=== PATIENT | female | born 1935 | race Caucasian/White ===

== ENCOUNTER 2017-04-07 19:54 | Emergency (ER) | payer MEDICARE, OTHER ==
[2017-04-07] MEDS ORDERED: ACETAMINOPHEN 325 MG TABLET PO ONE (21:31)
--- NOTE | 2017-04-07 21:32 | ER Document Report ---
ED Medical Screen (RME) - General Chief Complaint: Flank Pain Stated Complaint: LEFT SIDE HURTING Time Seen by Provider: 04/07/17 21:30 Mode of Arrival: Wheelchair Information source: Patient Notes: Patient presents complaining of left lateral rib tenderness for the past 5 days. Patient denies any injury. Patient denies any chest pain, cough, nausea , vomiting or diarrhea. Patient denies any urinary symptoms. Patient saw her doctor who told her that this might be developing shingles but family states that it has been 4 days since then and they do not suspect shingles at this time. Pain is reproducible with palpation. hx: Hypertension, diabetes, cholesterol, UT TRAVEL OUTSIDE OF THE [place] IN LAST 30 DAYS: No - Related Data Allergies/Adverse Reactions: cetirizine HCl [From Zyrtec] Allergy (Severe, Verified 03/10/12 10:00) valdecoxib [From Bextra] Allergy (Intermediate, Verified 03/10/12 10:29) Past Medical History - Past Medical History Cardiac Medical History: Reports: Hx Atrial Fibrillation, Hx Hypercholesterolemia, Hx Hypertension Pulmonary Medical History: Denies: Hx Tuberculosis Neurological Medical History: Reports: Hx Cerebrovascular Accident Endocrine Medical History: Reports: Hx Diabetes Mellitus Type 2 Renal/ Medical History: Denies: Hx Peritoneal Dialysis Musculoskeltal Medical History: Reports Hx Arthritis Past Surgical History: Denies: Hx Appendectomy, Hx Bowel Surgery, Hx Section, Hx Cholecystectomy, Hx Coronary Artery Bypass Graft, Hx Gastric Bypass Surgery, Hx Herniorrhaphy, Hx Hysterectomy, Hx Mastectomy, Hx Pacemaker, Hx Tonsillectomy, Hx Tubal Ligation - Immunizations Hx Diphtheria, Pertussis, Tetanus Vaccination: No - unknown Physical Exam - Vital signs Vitals: Temp Pulse Resp BP Pulse Ox 98.4 F 16 L 16 155/65 H 98 04/07/17 20:09 04/07/17 20:09 04/07/17 20:09 04/07/17 20:09 04/07/17 20:09 - Respiratory Respiratory status: No respiratory distress Chest status: Tender - Left lateral rib tenderness with palpation Course - Vital Signs Vital signs: Temp Pulse Resp BP Pulse Ox 98.4 F 16 L 16 155/65 H 98 04/07/17 20:09 04/07/17 20:09 04/07/17 20:09 04/07/17 20:09 04/07/17 20:09
--- NOTE | 2017-04-07 22:31 | RADIOLOGY REPORT (SQ) ---
EXAM DESCRIPTION: CHEST PA/LAT COMPLETED DATE/TIME: 04/07/2017 10:18 pm REASON FOR STUDY: left lateral rib tenderness COMPARISON: 12/13/2012 EXAM PARAMETERS: NUMBER OF VIEWS: two views TECHNIQUE: Digital Frontal and Lateral radiographic views of the chest acquired. RADIATION DOSE: NA LIMITATIONS: none FINDINGS: LUNGS AND PLEURA: No acute opacities, masses or pneumothorax. No pleural effusion. MEDIASTINUM AND HILAR STRUCTURES: Stable. HEART AND VASCULAR STRUCTURES: Heart normal size. No evidence for failure. BONES: No acute findings. HARDWARE: None in the chest. OTHER: No other significant finding. IMPRESSION: No acute findings. TECHNICAL DOCUMENTATION: JOB ID: [id number] [employer]- All Rights Reserved
[2017-04-07 22:49] LABS: ABSOLUTE EOSINOPHILS # (AUTO) 0.2 10^3/uL (0.0-0.6); ABSOLUTE LYMPHOCYTES (AUTO) 2.2 10^3/uL (0.5-4.7); ABSOLUTE MONOCYTES (AUTO) 0.5 10^3/uL (0.1-1.4); BASOPHILS % (AUTO) 0.5 % (0-2); EOSINOPHILS % (AUTO) 2.1 % (0-6); HEMATOCRIT 43.6 % (36.0-47.0); HEMOGLOBIN 14.1 g/dL (12.0-15.5); HGB HCT DIFFERENCE -1.3; MEAN CORPUSCULAR HGB CONC 32.4 g/dL (32.0-36.0); MEAN CORPUSCULAR VOLUME 90 fl (80-97); RED BLOOD COUNT 4.87 10^6/uL (3.72-5.28); RED CELL DISTRIBUTION WIDTH 14.4 % (11.5-14.0); SEGMENTED NEUTROPHILS % (AUTO) 67.4 % (42-78)
[2017-04-07 22:51] LABS: APPEARANCE,URINE CLEAR; BILIRUBIN,URINE NEGATIVE (NEGATIVE); GLUCOSE, URINE >=500 mg/dL (NEGATIVE); KETONES,URINE NEGATIVE (NEGATIVE); LEUKOCYTE ESTERASE,URINE NEGATIVE (NEGATIVE); NITRITE,URINE NEGATIVE (NEGATIVE); PROTEIN,URINE 100 mg/dL (NEGATIVE); URINE SPECIFIC GRAVITY 1.007; UROBILINOGEN,URINE NEGATIVE mg/dL (<2.0)
[2017-04-07 23:10] LABS: ALANINE AMINOTRANSFERASE 35 U/L (9-52); ALBUMIN 4.4 g/dL (3.5-5.0); ALKALINE PHOSPHATASE 80 U/L (38-126); ANION GAP 14 (5-19); ASPARTATE AMINO TRANSFERASE 51 U/L (14-36); BILIRUBIN,DIRECT 0.3 mg/dL (0.0-0.4); BILIRUBIN,TOTAL 0.4 mg/dL (0.2-1.3); BLOOD UREA NITROGEN 23 mg/dL (7-20); CALCIUM 9.7 mg/dL (8.4-10.2); CARBON DIOXIDE 23 mmol/L (22-30); CHLORIDE 103 mmol/L (98-107); CREATINE KINASE 70 U/L (30-135); CREATININE RESULT 1.68 mg/dL (0.52-1.25); GLUCOSE 141 mg/dL (75-110); SODIUM 140.3 mmol/L (137-145); TOTAL PROTEIN 8.1 g/dL (6.3-8.2)
[2017-04-07 23:22] LABS: CREATINE KINASE MB 1.29 ng/mL (<4.55); TROPONIN I < 0.012 ng/mL
[2017-04-08] MEDS ORDERED: TRAMADOL HCL 50 MG TABLET PO ONE (01:17)
--- NOTE | 2017-04-08 01:22 | ER Document Report ---
ED General - General Chief Complaint: Flank Pain Stated Complaint: LEFT SIDE HURTING Time Seen by Provider: 04/07/17 21:30 Mode of Arrival: Wheelchair Notes: Patient is an 81-year-old female who presents with complaint of pain in the left rib. She does have a cardiac history. She hurts to palpation over her left rib. There is one single rib that is tender to her. Still hurts worse with movement. Pain is been there for approximately 1 week. She saw her doctor and was diagnosed with a UTI and placed on antibiotics. She has had no dysuria at this time. She says that the pain became worse tonight and therefore they came to the ER. No fevers. No vomiting. No diarrhea. She had small amount of difficulty breathing and because it hurts to breathe. She has no other complaints at this time. TRAVEL OUTSIDE OF THE [place] IN LAST 30 DAYS: No - Related Data Allergies/Adverse Reactions: cetirizine HCl [From Zyrtec] Allergy (Severe, Verified 03/10/12 10:00) valdecoxib [From Bextra] Allergy (Intermediate, Verified 03/10/12 10:29) Past Medical History - General Information source: Patient - Social History Smoking Status: Unknown if Ever Smoked Frequency of alcohol use: None Drug Abuse: None Family History: Reviewed & Not Pertinent Patient has suicidal ideation: No Patient has homicidal ideation: No - Past Medical History Cardiac Medical History: Reports: Hx Atrial Fibrillation, Hx Hypercholesterolemia, Hx Hypertension Pulmonary Medical History: Denies: Hx Tuberculosis Neurological Medical History: Reports: Hx Cerebrovascular Accident Endocrine Medical History: Reports: Hx Diabetes Mellitus Type 2 Renal/ Medical History: Denies: Hx Peritoneal Dialysis Musculoskeltal Medical History: Reports Hx Arthritis Past Surgical History: Denies: Hx Appendectomy, Hx Bowel Surgery, Hx Section, Hx Cholecystectomy, Hx Coronary Artery Bypass Graft, Hx Gastric Bypass Surgery, Hx Herniorrhaphy, Hx Hysterectomy, Hx Mastectomy, Hx Pacemaker, Hx Tonsillectomy, Hx Tubal Ligation - Immunizations Hx Diphtheria, Pertussis, Tetanus Vaccination: No - unknown Hx Pneumococcal Vaccination: 02/29/04 Physical Exam - Vital signs Vitals: Temp Pulse Resp BP Pulse Ox 98.4 F 16 L 16 155/65 H 98 04/07/17 20:09 04/07/17 20:09 04/07/17 20:09 04/07/17 20:09 04/07/17 20:09 Course - Vital Signs Vital signs: Temp Pulse Resp BP Pulse Ox 97.6 F 58 L 16 147/57 H 98 04/08/17 02:13 04/08/17 02:13 04/08/17 02:13 04/08/17 02:13 04/08/17 02:13 - Laboratory Result Diagrams: 04/07/17 22:10 04/07/17 22:10 Laboratory results interpreted by me: 04/07/17 04/07/17 04/07/17 22:10 22:10 22:10 RDW 14.4 H BUN 23 H Creatinine 1.68 H Est GFR ( Amer) 35 L Est GFR (Non-Af Amer) 29 L Glucose 141 H AST 51 H Urine Protein 100 H Urine Glucose (UA) >=500 H Urine Blood SMALL H - EKG Interpretation by Me Additional EKG results interpreted by me: 04/08/17 01:17 EKG is reviewed and interpreted by me. EKG shows normal sinus rhythm with a rate of [address] segment elevation or depression. No ischemic T-wave inversions. MN interval, QRS duration, QTc intervals are within normal range. Old EKG for comparison is from December 13, 2012. - Transfer of Care Notes: 04/08/17 03:06 Patient's pain is very easily to palpation along a single rib from the anterior aspect around the flank. She does not have tenderness to palpation along any other parts of the rib cage. Her abdomen is nontender. I suspect subluxed rib that is probably causing her pain. I do not suspect coronary disease. Her EKG is normal. Her pain and exam was not consistent with coronary disease and that her pain is easily reproducible with both palpation and movement. At this time I feel the patient safe to be discharged home. I will give her an incentive spirometer to make sure that she does take deep breaths so that she is not splinting and does not develop pneumonia. I will have her follow-up with her doctor later this week for close reevaluation. Patient and family agree with plan and she will be discharged home. Discharge - Discharge Clinical Impression: Rib pain on left side Condition: Good Disposition: HOME, SELF-CARE Additional Instructions: Please take Tylenol during the day. Take Ultram if the pain is not well controlled with the Tylenol. Please return to the ER if the pain changes in location, you have difficulty breathing, or if you have fevers. Please use the incentive spirometer to take a deep breath at least once every 30 minutes. Please follow up with your doctor in 2-3 days for close reevaluation. Prescriptions: Tramadol HCl [Ultram] 50 mg PO Q6 PRN #20 tablet PRN Reason: Referrals: ANISH DEVRIES MD [Primary Care Provider] - Follow up as needed
[2017-04-08 02:19] VITALS: BP 147/57
--- NOTE | 2017-04-08 12:45 | EKG REPORT ---
SEVERITY:- ABNORMAL ECG - SINUS RHYTHM PROBABLE INFERIOR INFARCT, AGE INDETERMINATE BORDERLINE R WAVE PROGRESSION, ANTERIOR LEADS : Confirmed by: Elham Jaimes MD 08-Apr-2017 12:44:25
== END 2017-04-08 02:20 | disposition home or self-care (01) ==
LOC: ER 19:54
DX: R07.81 Pleurodynia (principal); R10.9 Unspecified abdominal pain; I48.91 Unspecified atrial fibrillation; E78.00 Pure hypercholesterolemia, unspecified; I10 Essential (primary) hypertension; Z86.73 Personal history of transient ischemic attack (TIA), and cerebral infarction without residual deficits
CPT/HCPCS: 93005; 99284; 36415; 82553; 82550; 85025; 80053; 81001; 84484; 71020; 93010; A9270 ×2

== ENCOUNTER 2017-06-11 07:26 | Observation (INO) | payer MEDICARE, OTHER ==
[2017-06-05 09:39] LABS: HEMATOCRIT 37.1 % (36.0-47.0); HEMOGLOBIN 12.4 g/dL (12.0-15.5); HGB HCT DIFFERENCE 0.1; MEAN CORPUSCULAR HEMOGLOBIN 29.7 pg (27.0-33.4); MEAN CORPUSCULAR HGB CONC 33.4 g/dL (32.0-36.0); MEAN CORPUSCULAR VOLUME 89 fl (80-97); RED BLOOD COUNT 4.17 10^6/uL (3.72-5.28); RED CELL DISTRIBUTION WIDTH 15.1 % (11.5-14.0); WHITE BLOOD COUNT 7.3 10^3/uL (4.0-10.5)
[2017-06-05 12:28] LABS: ANION GAP 13 (5-19); BLOOD UREA NITROGEN 21 mg/dL (7-20); CARBON DIOXIDE 27 mmol/L (22-30); CHLORIDE 99 mmol/L (98-107); CREATININE RESULT 1.42 mg/dL (0.52-1.25); GLUCOSE 241 mg/dL (75-110); POTASSIUM 4.8 mmol/L (3.6-5.0); SODIUM 138.8 mmol/L (137-145)
--- NOTE | 2017-06-05 13:58 | EKG REPORT ---
SEVERITY:- ABNORMAL ECG - SINUS RHYTHM INFERIOR INFARCT, AGE INDETERMINATE CONSIDER ANTERIOR INFARCT : Confirmed by: Faraz Bullard MD 05-Jun-2017 13:57:22
--- NOTE | 2017-06-06 17:51 | RADIOLOGY REPORT (SQ) ---
EXAM DESCRIPTION: CHEST PA/LATERAL COMPLETED DATE/TIME: 06/05/2017 10:59 am REASON FOR STUDY: PRE-OP COMPARISON: Two-view chest 04/07/2017 CT chest 03/23/2012 EXAM PARAMETERS: NUMBER OF VIEWS: two views TECHNIQUE: Digital Frontal and Lateral radiographic views of the chest acquired. RADIATION DOSE: NA LIMITATIONS: none FINDINGS: LUNGS AND PLEURA: New pleural thickening/ calcification in the right lateral mid chest. No acute infiltrates. No pleural effusions. No pneumothorax. MEDIASTINUM AND HILAR STRUCTURES: No masses or contour abnormalities. HEART AND VASCULAR STRUCTURES: Heart normal size. No evidence for failure. BONES: No acute findings. HARDWARE: None in the chest. OTHER: No other significant finding. IMPRESSION: Right-sided mid chest pleural thickening/ calcification new compared to previous studies . No acute alveolar infiltrates. No pleural effusion or pneumothorax. TECHNICAL DOCUMENTATION: JOB ID: [id number] [employer]- All Rights Reserved
[~2017-06-11 07:26] MED LIST: ACETAMINOPHEN 325 MG TABLET PO PRN; CEFAZOLIN 1 GM/D5W RTU 1 GM/50 ML RTUPB IV PRN; LACTATED RINGERS 1000 ML IV PRN; LIDOCAINE 0.5% INJ-PF (5 MG/ML) 50 ML SDV SUBCUT PRN; LIDOCAINE 4% TRANSPARENT DRESSING 5 GM KIT TP PRN
[2017-06-11 08:33] LABS: PARTIAL THROMBOPLASTIN TIME 27.3 SEC (23.5-35.8); PROTHROMBIN TIME 13.6 SEC (11.4-15.4)
[2017-06-11] MEDS ORDERED: ONDANSETRON HCL INJ/PF 4 MG/2 ML SDV ONE ×2 (09:47→09:58)
[2017-06-11] MEDS ORDERED: LIDOCAINE 2% INJ-PF (20 MG/ML) 10 ML AMPUL ONE (09:58)
[2017-06-11] MEDS ORDERED: SUCCINYLCHOLINE CHLORIDE INJ 200 MG/10 ML VIAL ONE (09:58)
--- NOTE | 2017-06-11 10:25 | EKG REPORT ---
SEVERITY:- ABNORMAL ECG - SINUS RHYTHM PROBABLE INFERIOR INFARCT, AGE INDETERMINATE CONSIDER ANTERIOR INFARCT : Confirmed by: Alannah Ventura 11-Jun-2017 10:24:43
[2017-06-11] MEDS ORDERED: MORPHINE SULFATE 10 MG/ML INJ IV ONE (10:30)
[2017-06-11] MEDS ORDERED: LIDOCAINE 2%/EPINEPHRINE INJ 20 ML VIAL ONE (11:11)
[2017-06-11] MEDS ORDERED: MICROFIBRILLAR COLLAGEN 1 GM PACK ONE (11:11)
[2017-06-11] MEDS ORDERED: METHYLENE BLUE 50 MG/10 ML AMPULE ONE (11:11)
--- NOTE | 2017-06-11 11:16 | RADIOLOGY REPORT (SQ) ---
EXAM DESCRIPTION: NM LYMPHATICS/LYMPH GLANDS COMPLETED DATE/TIME: 06/11/2017 9:38 am REASON FOR STUDY: BREAST CANCER C50.911 MALIGNANT NEOPLASM OF UNSP SITE OF RIGHT FEMALE JACE Z01.81 8 ENCOUNTER FOR OTHER PREPROCEDURAL EXAMINATION Z79.01 FDC (CURRENT) USE OF ANTICOAGULANTS COMPARISON: Two-view chest 06/05/2017 RADIONUCLIDE AND DOSE: 543 microcuries TC-[id number] - [employer]. The route of agent administration: Subcutaneous in the skin. TECHNIQUE: The skin of the right breast was prepped in sterile fashion. The radiopharmaceutical was administered in equally divided doses in the periareolar breast. LIMITATIONS: None. FINDINGS: Images demonstrate activity at the injection site, with migration toward the axilla. IMPRESSION: ADMINISTRATION OF RADIOPHARMACEUTICAL FOR SENTINEL LYMPH NODE EVALUATION. TECHNICAL DOCUMENTATION: JOB ID: [id number] [employer]- All Rights Reserved
[2017-06-11 11:33] LABS: CREATINE KINASE MB 0.96 ng/mL (<4.55)
[2017-06-11 11:35] LABS: TROPONIN I < 0.012 ng/mL
[2017-06-11] MEDS ORDERED: MIDAZOLAM 2 MG/2 ML INJ ONE (13:15)
[2017-06-11] MEDS ORDERED: FENTANYL CITRATE INJ/PF 250 MCG/5 ML AMPULE ONE (13:15)
[2017-06-11] MEDS ORDERED: PROPOFOL INJ 200 MG/20 ML VIAL IV ONE (13:15)
[2017-06-11] MEDS ORDERED: IBUPROFEN INJ 800 MG/8 ML VIAL IV ONE (13:15)
[2017-06-11] MEDS ORDERED: ONDANSETRON HCL INJ/PF 4 MG/2 ML SDV IV PRN ×3 (14:44→15:36)
[2017-06-11] MEDS ORDERED: MORPHINE SULFATE 10 MG/ML INJ IV PRN (15:14)
[2017-06-11] MEDS ORDERED: RINGERS SOLUTION,LACTATED 1,000 ML IV PRN (15:14)
--- NOTE | 2017-06-11 15:28 | Operative Report ---
Operative Report DATE OF SURGERY: 06/11/17 PREOPERATIVE DIAGNOSIS: Right breast cancer POSTOPERATIVE DIAGNOSIS: same OPERATION: 1. Right mastectomy. 2. Dual mapping sentinel lymph node biopsy 2 right axilla. 3. Drain of chest wall right side SURGEON: YUAN ALTAMIRANO 1ST CORRECTIONS OFFICER: BRYN CHAVES ANESTHESIA: GA TISSUE REMOVED OR ALTERED: 1. Right breast including tail of Eng. 2. Henderson lymph node right axilla 2 COMPLICATIONS: None ESTIMATED BLOOD LOSS: 50 cc INTRAOPERATIVE FINDINGS: See below PROCEDURE: The patient was taken from the [facility] surgery area to the radiology suite where she underwent lymphoscintigraphy of the right breast and axilla. The findings revealed 2 areas of increased uptake in the axilla. The patient was subsequently taken to the operating room and general anesthesia was induced. The arm was abducted, and the second portion of the dual mapping technique was deployed. The right breast was exposed. The upper outer quadrant of the areole complex was prepped with Betadine, approximately 2 cc of methylene blue was injected into the intradermal tissue. The right breast was massaged. Right breast, chest wall and right axilla were all prepped and draped sterile fashion. Surgical plan surgical timeout were conducted. Findings are significant for a very large right breast tumor primarily retroareolar but is prominently in the 4 5 and 6 o'clock position of the right breast with skin dimpling. Therefore a generous elliptical marking was made on the skin for planned mastectomy. The ellipse was taken down with the 10 blade. Superior and inferior skin flaps were raised with the superior taken down to the subclavicular area, and medially the parasternal region, and inferiorly the flap taken down to the serratus anterior muscle. The right breast was then taken off of the pectoralis major and the lateral border of the pectoralis minor muscle as well as the outer lateral aspect of the serratus anterior muscle all with electrocautery. We then took the tail of Eng and brought the level of dissection down to the low axilla, with the breast coming off with the tail all intact. The specimen was not labeled. This gave us ample time to perform the sentinel node biopsy as we had optimal exposure. The first sentinel node was blue and hot however very small with an in vivo count of 1861 ex vivo count of 1565. It was submitted as as sentinel lymph node 1, blue and hot. It was level 1. A second sentinel lymph node was also identified in same area with an in vivo count of 2240 and ex vivo count of 1694. It was labeled as blue and hot and sent to pathology and a second container. We did have breast examined by pathologist who stated that the tumor was contained within the mastectomy specimen however the anterior margin was close. Given the fact that there was no more breast tissue anterior to this close margin site except the inferior skin flap in this 81-year-old female, I felt the safest thing to do was to close the mastectomy incision. A large Luis Angel drain was placed in inferior skin flap of the wound closed with 2 running 2-0 Vicryl suture. Dermabond glue was applied. Patient tolerated procedure well, extubated taken recovery in stable condition. OMARI Garcia assisted with skin retraction, wound closure.
[2017-06-11] MEDS ORDERED: DEXTROSE 5%-LACTATED RINGERS 1,000 ML IV PRN (15:36)
[2017-06-11] MEDS ORDERED: ACETAMINOPHEN 325 MG TABLET PO PRN (15:36)
[2017-06-11] MEDS ORDERED: MAG HYDROX/AL HYDROX/SIMETH SUSP 30 ML UDCUP PO PRN (18:48)
[2017-06-11] MEDS: DOCUSATE SODIUM 100 MG CAPSULE PO SCH (18:56)
[2017-06-11] MEDS ORDERED: ONDANSETRON 4 MG TAB.RAPDIS PO PRN (19:00)
[2017-06-11] MEDS ORDERED: HYDROCODONE/ACETAMINOPHEN 5-325 MG TABLET PO PRN (19:00)
[2017-06-11] MEDS ORDERED: NITROGLYCERIN 0.4 MG/TAB 25 TAB/BOTTLE SL PRN (19:15)
[2017-06-11] MEDS: SOTALOL HCL 80 MG TABLET PO SCH (21:37)
[2017-06-11] MEDS ORDERED: ATORVASTATIN CALCIUM 10 MG TABLET PO SCH (22:00)
[2017-06-11] MEDS ORDERED: INSULIN GLARGINE,HUM.REC.ANLOG 1,000 UNIT/10 ML UNIT SUBCUT SCH (22:00)
[2017-06-11] MEDS ORDERED: RIVAROXABAN 15 MG TABLET PO SCH (22:00)
[2017-06-11] MEDS ORDERED: INSULIN GLARGINE,HUM.REC.ANLOG 300 UNIT/3 ML INSULN.PEN SUBCUT SCH (22:00)
[2017-06-12] MEDS: OXYCODONE-ACETAMINOPHEN 5-325 MG TABLET PO PRN ×2 (04:16→09:20)
[2017-06-12] MEDS ORDERED: ONDANSETRON HCL INJ/PF 4 MG/2 ML SDV IV PRN (08:00)
--- NOTE | 2017-06-12 08:02 | DISCHARGE SUMMARY E ---
Discharge Summary NAME: JOSUÉ ALVARADO : 1935 AGE: 81Y ADMITTED: 06/11/2017 DISCHARGED: 06/12/2017 REASON FOR ADMISSION: Right breast carcinoma. SUMMARY OF HOSPITALIZATION: Patient is an 81-year-old white female with a history of locally advanced right breast carcinoma. She was brought to ambulatory surgery for right mastectomy in conjunction with sentinel node biopsy of right axilla. Patient tolerated the procedure well. There were no postoperative complications. She was admitted overnight for observation and discharged home the following day. She was tolerating a diet, ambulating, voiding, and utilizing her arm satisfactorily. FINAL DIAGNOSIS: Invasive right breast carcinoma, ER/VT positive, HER2 negative, status post right mastectomy with sentinel node biopsy by Dr. Altamirano. DISPOSITION: Patient will be discharged home in the care of family. Followup with Dr. Altamirano, [facility], in 1-2 weeks. Take Percocet p.r.n. pain. She will resume her preoperative medications. In addition, she has been instructed on emptying her wound drain. DICTATING PHYSICIAN: YUAN ALTAMIRANO M.D. [id number] PHY#: [id number] ID: [id number] JOB#: [id number] ACCT: [id number] cc:YUAN ALTAMIRANO M.D. >
[2017-06-12 08:08] VITALS: BP 124/52
[2017-06-12] MEDS: DOCUSATE SODIUM 100 MG CAPSULE PO SCH (09:19)
[2017-06-12] MEDS: SOTALOL HCL 80 MG TABLET PO SCH (09:20)
[2017-06-12] MEDS ORDERED: SITAGLIPTIN PHOSPHATE 50 MG TABLET PO SCH (10:00)
[2017-06-12] MEDS ORDERED: METFORMIN HCL 500 MG TABLET PO SCH (10:00)
[2017-06-12] MEDS ORDERED: BENAZEPRIL HCL 10 MG TABLET PO SCH (10:00)
[2017-06-12] MEDS ORDERED: LINAGLIPTIN PO SCH (10:00)
[2017-06-12] MEDS ORDERED: SITAGLIPTIN PHOSPHATE 25 MG TABLET PO SCH (10:00)
[2017-06-12] MEDS ORDERED: METFORMIN HCL PO SCH (10:00)
[2017-06-12] MEDS ORDERED: CHOLECALCIFEROL (D3) 400 UNIT TABLET PO SCH (10:00)
[2017-06-12] MEDS ORDERED: (PENDING PHARMACY ID) (Empagliflozin [Jardiance] 10 MG) PO SCH (10:00)
[2017-06-12] MEDS ORDERED: AMLODIPINE BESYLATE 5 MG TABLET PO SCH (10:00)
[2017-06-12] MEDS ORDERED: (PENDING PHARMACY ID) (Ergocalciferol (Vitamin D2) [Vitamin D] 400 UNIT) PO SCH (10:00)
== END 2017-06-12 09:50 | disposition home or self-care (01) ==
LOC: OROUT 07:26 → 4N 17:35
PROVIDERS: ADMIT Surgery; ATTEND Surgery
PROC: 07B50ZX Excision of Right Axillary Lymphatic, Open Approach, Diagnostic (ICD-10-PCS; 2017-06-11)
PROC: 0HTT0ZZ Resection of Right Breast, Open Approach (ICD-10-PCS; principal; 2017-06-11 14:00)
DX: C50.311 Malignant neoplasm of lower-inner quadrant of right female breast (principal); C77.3 Secondary and unspecified malignant neoplasm of axilla and upper limb lymph nodes; Z17.0 Estrogen receptor positive status [ER+]; Z79.01 Long term (current) use of anticoagulants; Z01.818 Encounter for other preprocedural examination; E11.9 Type 2 diabetes mellitus without complications; I10 Essential (primary) hypertension; I48.91 Unspecified atrial fibrillation; E78.00 Pure hypercholesterolemia, unspecified; H54.8 Legal blindness, as defined in USA; Z86.73 Personal history of transient ischemic attack (TIA), and cerebral infarction without residual deficits; Z79.899 Other long term (current) drug therapy; Z79.4 Long term (current) use of insulin; Z72.0 Tobacco use
CPT/HCPCS: 1610; 36415; 71020; 78195; 80048; 82550; 82553; 82962; 84484; 85027; 85610; 85730; 88305; 88309; 93005; 93010; 88329; A9520; G0378; J0330; J0690; J1741; J1815; J2250; J2270; J2405; J2704; J3010; J3490; Q9968; S0119

== ENCOUNTER → 2017-06-24 | Outpatient (CLI) | payer MEDICARE ==
--- NOTE | 2017-06-24 12:52 | RADIOLOGY REPORT (SQ) ---
EXAM DESCRIPTION: CHEST PA/LATERAL COMPLETED DATE/TIME: 06/24/2017 12:34 pm REASON FOR STUDY: CHEST PAIN COMPARISON: CT chest 03/23/2012 Chest films 12/13/2012, 04/07/2017, 06/05/2017 EXAM PARAMETERS: NUMBER OF VIEWS: two views TECHNIQUE: Digital Frontal and Lateral radiographic views of the chest acquired. RADIATION DOSE: NA LIMITATIONS: none FINDINGS: LUNGS AND PLEURA: Chronic elevation right hemidiaphragm. Lungs are well inflated. No focal infiltrates. Chronic mild increased interstitial markings are present in the mid and lower lungs, unchanged from p rior studies. No pleural effusions. No pneumothorax. MEDIASTINUM AND HILAR STRUCTURES: No masses or contour abnormalities. HEART AND VASCULAR STRUCTURES: Heart normal size. No evidence for failure. BONES: Osteopenic without thoracic compression deformity HARDWARE: Surgical clips right breast OTHER: No other significant finding. IMPRESSION: No acute findings. Chronic elevation right hemidiaphragm and increased interstitial mar kings along the periphery of both lungs TECHNICAL DOCUMENTATION: JOB ID: [id number] [employer]- All Rights Reserved
--- NOTE | 2017-06-24 12:56 | RADIOLOGY REPORT (SQ) ---
EXAM DESCRIPTION: T SPINE AP/LAT COMPLETED DATE/TIME: 06/24/2017 12:34 pm REASON FOR STUDY: PAIN IN THORACIC SPINE R07.9 CHEST PAIN, UNSPECIFIED M54.6 PAIN IN THORACIC SPIN E COMPARISON: Two-view chest same date, CT chest 03/23/2012 NUMBER OF VIEWS: Two views. TECHNIQUE: AP and lateral radiographic images acquired of the thoracic spine. LIMITATIONS: None. FINDINGS: MINERALIZATION: Osteopenic ALIGNMENT: Normal. No scoliosis. VERTEBRAE: Grossly intact. DISCS: Multilevel disc space loss of height. HARDWARE: None in the spine. MEDIASTINUM AND SOFT TISSUES: Normal heart size and aortic contour. No soft tissue abnormality. VISUALIZED LUNG HOBBS: Clear. OTHER: No other significant finding. IMPRESSION: Diffuse degenerative disc changes in the thoracic spine. Osteopenia. No gross acute compression deformity. If there is strong clinical suspicion for thoraci c vertebral body compression fracture, consider MRI thoracic spine without contrast for followup TECHNICAL DOCUMENTATION: JOB ID: [id number] [employer]- All Rights Reserved
== END ==
LOC: OD 12:09
PROVIDERS: ATTEND Surgery
DX: M54.6 Pain in thoracic spine (principal); R07.9 Chest pain, unspecified
CPT/HCPCS: 71020; 72070

== ENCOUNTER 2017-07-02 21:13 | Inpatient (IN) | payer MEDICARE ==
[2017-07-02] MEDS ORDERED: ONDANSETRON 4 MG TAB.RAPDIS PO ONE (23:07)
[2017-07-02] MEDS ORDERED: NORMAL SALINE 1000 ML 1,000 ML IV ONE (23:07)
--- NOTE | 2017-07-02 23:09 | ER Document Report ---
ED Medical Screen (RME) - General Chief Complaint: Nausea/Vomiting Stated Complaint: BLOOD IN STOOL Time Seen by Provider: 07/02/17 23:06 Mode of Arrival: Wheelchair Information source: Relative Notes: Patient is an 81-year-old female who presents to the ER today for nausea, vomiting 1 day with blood from her vagina on the toilet paper prior to arrival. Patient recently had a mastectomy for breast cancer. She is on blood thinners due to history of multiple strokes. She does still have all of her abdominal organs. TRAVEL OUTSIDE OF THE [place] IN LAST 30 DAYS: No - Related Data Allergies/Adverse Reactions: cetirizine HCl [From Zyrtec] Allergy (Severe, Verified 06/11/17 08:23) valdecoxib [From Bextra] Allergy (Intermediate, Verified 06/11/17 08:23) tramadol Allergy (Verified 06/11/17 08:23) Past Medical History - General Information source: Patient, Relative - Past Medical History Cardiac Medical History: Reports: Hx Atrial Fibrillation, Hx Hypercholesterolemia, Hx Hypertension Denies: Hx Coronary Artery Disease, Hx Heart Attack Pulmonary Medical History: Denies: Hx Asthma, Hx Bronchitis, Hx COPD, Hx Pneumonia, Hx Tuberculosis Neurological Medical History: 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 Denies: Hx Seizures Endocrine Medical History: Reports: Hx Diabetes Mellitus Type 2 Renal/ Medical History: Denies: Hx Peritoneal Dialysis Musculoskeltal Medical History: Reports Hx Arthritis Past Surgical History: Denies: Hx Appendectomy, Hx Bowel Surgery, Hx Section, Hx Cholecystectomy, Hx Coronary Artery Bypass Graft, Hx Gastric Bypass Surgery, Hx Herniorrhaphy, Hx Hysterectomy, Hx Mastectomy, Hx Pacemaker, Hx Tonsillectomy, Hx Tubal Ligation - Immunizations Hx Diphtheria, Pertussis, Tetanus Vaccination: Yes - UNSURE WHEN Review of Systems - Review of Systems Gastrointestinal: See HPI Female Genitourinary: See HPI Physical Exam - Vital signs Vitals: Temp Pulse Resp BP Pulse Ox 98.2 F 76 14 133/62 H 97 07/02/17 21:32 07/02/17 21:32 07/02/17 21:32 07/02/17 21:32 07/02/17 21:32 - Notes Notes: PHYSICAL EXAMINATION: GENERAL: Mildly pale appearing, anxious to urinate, in no acute distress. LUNGS: CTAB and equal. No wheezes rales or rhonchi. HEART: Regular rate and rhythm without murmurs Course - Vital Signs Vital signs: Temp Pulse Resp BP Pulse Ox 98.2 F 76 14 133/62 H 97 07/02/17 21:32 07/02/17 21:32 07/02/17 21:32 07/02/17 21:32 07/02/17 21:32
[2017-07-02 23:47] LABS: HEMATOCRIT 34.2 % (36.0-47.0); HEMOGLOBIN 11.5 g/dL (12.0-15.5); HGB HCT DIFFERENCE 0.3; MEAN CORPUSCULAR HEMOGLOBIN 29.7 pg (27.0-33.4); MEAN CORPUSCULAR HGB CONC 33.6 g/dL (32.0-36.0); MEAN CORPUSCULAR VOLUME 88 fl (80-97); RED BLOOD COUNT 3.87 10^6/uL (3.72-5.28); RED CELL DISTRIBUTION WIDTH 16.3 % (11.5-14.0); WHITE BLOOD COUNT 9.7 10^3/uL (4.0-10.5)
[2017-07-02 23:52] LABS: PROTHROMBIN TIME 22.6 SEC (11.4-15.4)
[2017-07-02 23:55] LABS: ALANINE AMINOTRANSFERASE 32 U/L (9-52); ALBUMIN 4.3 g/dL (3.5-5.0); ALKALINE PHOSPHATASE 144 U/L (38-126); ANION GAP 12 (5-19); ASPARTATE AMINO TRANSFERASE 114 U/L (14-36); BILIRUBIN,DIRECT 0.6 mg/dL (0.0-0.4); BILIRUBIN,TOTAL 0.8 mg/dL (0.2-1.3); BLOOD UREA NITROGEN 26 mg/dL (7-20); CALCIUM 10.2 mg/dL (8.4-10.2); CARBON DIOXIDE 25 mmol/L (22-30); CHLORIDE 98 mmol/L (98-107); CREATININE RESULT 1.26 mg/dL (0.52-1.25); GLUCOSE 203 mg/dL (75-110); LIPASE 133.2 U/L (23-300); POTASSIUM 5.5 mmol/L (3.6-5.0); SODIUM 135.1 mmol/L (137-145); TOTAL PROTEIN 7.7 g/dL (6.3-8.2)
[2017-07-03 00:15] LABS: BAND NEUTROPHILS % (MANUAL) 6 % (3-5); BASOPHILS % (MANUAL) 0 % (0-2); EOSINOPHILS % (MANUAL) 4 % (0-6); LYMPHOCYTES % (MANUAL) 38 % (13-45); NUCLEATED RED BLOOD CELLS 4 /100 WBC (0); TOTAL CELLS COUNTED 100
[2017-07-03 00:18] LABS: ANISOCYTOSIS 1+; OVALOCYTES SLIGHT; POIKILOCYTOSIS SLIGHT; POLYCHROMASIA SLIGHT; TOXIC VACUOLATION PRESENT
[2017-07-03 01:29] LABS: APPEARANCE,URINE SLIGHTLY-CLOUDY; BILIRUBIN,URINE NEGATIVE (NEGATIVE); GLUCOSE, URINE >=500 mg/dL (NEGATIVE); KETONES,URINE 20 mg/dL (NEGATIVE); LEUKOCYTE ESTERASE,URINE SMALL (NEGATIVE); NITRITE,URINE NEGATIVE (NEGATIVE); PROTEIN,URINE 30 mg/dL (NEGATIVE); URINE SPECIFIC GRAVITY 1.023; UROBILINOGEN,URINE NEGATIVE mg/dL (<2.0)
--- NOTE | 2017-07-03 02:44 | RADIOLOGY REPORT (SQ) ---
EXAM DESCRIPTION: ACUTE ABDOMEN SERIES COMPLETED DATE/TIME: 07/03/2017 1:52 am REASON FOR STUDY: vomiting, abdominal distension COMPARISON: None. NUMBER OF VIEWS: Three views. TECHNIQUE: Frontal chest, supine abdomen and upright/decubitus abdomen radiographic images acquired. LIMITATIONS: None. FINDINGS: CHEST: Lungs clear of infiltrates. Prominent interstitium. FREE AIR: None. No abnormal gas collections. BOWEL GAS PATTERN: Nonobstructive pattern. No dilated loops or air fluid levels. CALCIFICATIONS: No suspicious calcifications. HARDWARE: Surgical clips of the right lower hemithorax/chest. SOFT TISSUES: No gross mass or suggestion of organomegaly. BONES: No acute fracture. No worrisome bone lesions. OTHER: No other significant finding. IMPRESSION: NO RADIOGRAPHIC EVIDENCE FOR ACUTE ABDOMINAL DISEASE. TECHNICAL DOCUMENTATION: JOB ID: [id number] [employer]- All Rights Reserved
--- NOTE | 2017-07-03 02:58 | ER Document Report ---
ED General - General Chief Complaint: Nausea/Vomiting Stated Complaint: BLOOD IN STOOL Time Seen by Provider: 07/02/17 23:06 Mode of Arrival: Wheelchair Notes: Patient is an 81-year-old female presents with complaints of an episode of vomiting. Her daughter lives with her. She said that she actually 2 episodes of vomiting. She said the first 1 was a large amount of brown foul-smelling material. Said the second episode was just a small amount of emesis. She denies any gross red blood. Patient also feels as if her abdomen is slightly distended. She has not had fevers. No diarrhea. The daughter says the main reason mother concern is she also has some blood coming from the vaginal area. She said that she had a little bit of blood on her underwear. She is on Xarelto. She takes Xarelto due to her history of atrial fibrillation and strokes. She also has a history of breast cancer and had surgery recently by Dr. Rogers. She has had no further issues with her breasts since the surgery. She denies any recent fevers. She denies any discomfort in her abdomen at this time. She has no other complaints at this time. TRAVEL OUTSIDE OF THE [place] IN LAST 30 DAYS: No - Related Data Allergies/Adverse Reactions: cetirizine HCl [From Zyrtec] Allergy (Severe, Verified 06/11/17 08:23) valdecoxib [From Bextra] Allergy (Intermediate, Verified 06/11/17 08:23) tramadol Allergy (Verified 06/11/17 08:23) Past Medical History - General Information source: Patient, Relative - Social History Smoking Status: Unknown if Ever Smoked Frequency of alcohol use: None Drug Abuse: None Family History: Reviewed & Not Pertinent Patient has suicidal ideation: No Patient has homicidal ideation: No - Past Medical History Cardiac Medical History: Reports: Hx Atrial Fibrillation, Hx Hypercholesterolemia, Hx Hypertension Denies: Hx Coronary Artery Disease, Hx Heart Attack Pulmonary Medical History: Denies: Hx Asthma, Hx Bronchitis, Hx COPD, Hx Pneumonia, Hx Tuberculosis Neurological Medical History: 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 Denies: Hx Seizures Endocrine Medical History: Reports: Hx Diabetes Mellitus Type 2 Renal/ Medical History: Denies: Hx Peritoneal Dialysis Musculoskeltal Medical History: Reports Hx Arthritis Past Surgical History: Denies: Hx Appendectomy, Hx Bowel Surgery, Hx Section, Hx Cholecystectomy, Hx Coronary Artery Bypass Graft, Hx Gastric Bypass Surgery, Hx Herniorrhaphy, Hx Hysterectomy, Hx Mastectomy, Hx Pacemaker, Hx Tonsillectomy, Hx Tubal Ligation - Immunizations Hx Diphtheria, Pertussis, Tetanus Vaccination: Yes - UNSURE WHEN Hx Pneumococcal Vaccination: 10/20/14 Review of Systems - Review of Systems Notes: My Normal Review Basic REVIEW OF SYSTEMS: CONSTITUTIONAL : Denies fever, chills, or sweats. Denies recent illness. EENT: Denies eye, ear, throat, or mouth pain or symptoms. Denies nasal or sinus congestion. CARDIOVASCULAR: Denies chest pain. RESPIRATORY: Denies cough, cold, or chest congestion. Denies shortness of breath, difficulty breathing, or wheezing. GASTROINTESTINAL: Denies abdominal pain. Vomiting 2 denies constipation. Last BM: GENITOURINARY: Denies difficulty urinating, painful urination, burning, frequency, or blood in urine. FEMALE GENITOURINARY: Small amount of vaginal bleeding. MUSCULOSKELETAL: Denies neck or back pain or joint pain or swelling. SKIN: Denies rash or skin lesions. NEUROLOGICAL: Denies altered mental status or loss of consciousness. Denies headache. Denies weakness or paralysis or loss of use of either side. Denies problems with gait or speech. Denies sensory or motor loss.SYCHIATRIC: Denies anxiety or stress or depression. ALL OTHER SYSTEMS REVIEWED AND NEGATIVE. Physical Exam - Vital signs Vitals: Temp Pulse Resp BP Pulse Ox 98.2 F 76 14 133/62 H 97 07/02/17 21:32 07/02/17 21:32 07/02/17 21:32 07/02/17 21:32 07/02/17 21:32 - Notes Notes: General Appearance: Well nourished, alert, cooperative, no acute distress, no obvious discomfort. Well-appearing. Vitals: reviewed, See vital signs table. Head: no swelling or tenderness to the head Eyes: PERRL, EOMI, Conjuctiva clear Mouth: No decreasd moisture Throat: No tonsillar inflammation, No airway obstruction, No lymphadenopathy Lungs: No wheezing, No rales, No rhonci, No accessory muscle use, good air exchange bilaterally. Heart: Normal rate, Regular rythm, No murmur, no rub Abdomen: Abdomen does appear slightly distended. She does not have any significant pain to palpation of her abdomen. She has faint bowel sounds. Rectal: Brown stool in rectal vault. No gross blood. Vaginal: No blood in vaginal vault on pelvic and speculum exam. Extremities: strength 5/5 in all extremities, good pulses in all extremities, no swelling or tenderness in the extremities, no edema. Skin: warm, dry, appropriate color, no rash Neuro: speech clear, oriented x 3, normal affect, responds appropriately to questions. Course - Re-evaluation Re-evalutation: 07/03/17 06:11 My concern is that the patient is on Xarelto and has dark emesis. She is guaiac positive. This makes her concerned that she has a upper GI bleed. Initially was concerned for possible ability of obstruction as well. This is only because the patient did have what the daughter described as also foul- smelling emesis. He also felt that maybe her his abdomen was more distended and usual. I think obstruction is unlikely as patient has normal acute abdominal series, has really no pain to palpation of her abdomen, and she has normal soft stool in the rectum with air going away into the rectum on x-ray. Due to the patient being 81 years old and on Xarelto and possibly having a GI bleed I felt appropriate to admit her for at least observation. I spoke with the hospitalist who agrees to admit the patient. Dictation of this chart was performed using voice recognition software; therefore, there may be some unintended grammatical errors. - Vital Signs Vital signs: Temp Pulse Resp BP Pulse Ox 98.2 F 76 15 150/109 H 95 07/02/17 21:32 07/02/17 21:32 07/03/17 04:00 07/03/17 01:01 07/03/17 04:00 - Laboratory Result Diagrams: 07/02/17 23:30 07/02/17 23:30 Laboratory results interpreted by me: 07/02/17 07/02/17 07/02/17 23:30 23:30 23:30 Hgb 11.5 L Hct 34.2 L RDW 16.3 H Plt Count 91 L Band Neutrophils % 6 H Monocytes % (Manual) 1 L Metamyelocytes % 1 H PT 22.6 H Sodium 135.1 L Potassium 5.5 H BUN 26 H Creatinine 1.26 H Est GFR ( Amer) 49 L Est GFR (Non-Af Amer) 41 L Glucose 203 H Direct Bilirubin 0.6 H AST 114 H Alkaline Phosphatase 144 H Urine Protein Urine Glucose (UA) Urine Ketones Ur Leukocyte Esterase Urine Ascorbic Acid 07/03/17 01:05 Hgb Hct RDW Plt Count Band Neutrophils % Monocytes % (Manual) Metamyelocytes % PT Sodium Potassium BUN Creatinine Est GFR ( Amer) Est GFR (Non-Af Amer) Glucose Direct Bilirubin AST Alkaline Phosphatase Urine Protein 30 H Urine Glucose (UA) >=500 H Urine Ketones 20 H Ur Leukocyte Esterase SMALL H Urine Ascorbic Acid 20 H Discharge - Discharge Clinical Impression: Vomiting Qualifiers: Vomiting type: unspecified Vomiting Intractability: unspecified Nausea presence : with nausea Qualified Code(s): R11.2 - Nausea with vomiting, unspecified GI bleed Qualifiers: GI bleed type/associated pathology: melena Qualified Code(s): K92.1 - Melena Condition: Stable Disposition: ADMITTED OBSERVATION Admitting Provider: Hospitalist Unit Admitted: [facility]
[2017-07-03] MEDS ORDERED: PANTOPRAZOLE SODIUM 40 MG VIAL IV ONE (04:15)
[2017-07-03] MEDS ORDERED: LACTULOSE SYRUP 20 GM/30 ML UDCUP PO ONE ×2 (04:43→12:30)
[2017-07-03] MEDS ORDERED: NA PHOS,M-B/NA PHOS,DI-BA (ADULT) 133 ML ENEMA PR ONE ×2 (04:43→12:30)
[2017-07-03] MEDS ORDERED: GLUCAGON,HUMAN RECOMB 1 MG INJ IM PRN (04:46)
[2017-07-03] MEDS ORDERED: METOPROLOL TARTRATE PF/INJ 5 MG/5 ML SDV IV PRN (04:46)
[2017-07-03] MEDS ORDERED: MAG HYDROX/AL HYDROX/SIMETH SUSP 30 ML UDCUP PO PRN (04:46)
[2017-07-03] MEDS ORDERED: ONDANSETRON HCL INJ/PF 4 MG/2 ML SDV IV PRN (04:46)
[2017-07-03] MEDS ORDERED: IPRATROPIUM/ALBUTEROL 0.5-2.5 MG/3 ML AMPUL NEB PRN (04:46)
[2017-07-03] MEDS ORDERED: DEXTROSE 40% GEL 15 GM TUBE PO PRN ×2 (04:46)
[2017-07-03] MEDS ORDERED: DEXTROSE 50%-WATER 25 GM/50 ML DISP.SYRIN IV PRN ×2 (04:46)
[2017-07-03] MEDS ORDERED: PANTOPRAZOLE SODIUM 40 MG VIAL IV PRN (04:52)
[2017-07-03] MEDS ORDERED: NORMAL SALINE 1000 ML 1,000 ML IV SCH (05:00)
--- NOTE | 2017-07-03 06:01 | PDOC H&P ---
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 fib on Xarelto and breast cancer status post mastectomy 2 weeks ago. Patient is accompanied by her daughter who is her caregiver and able to provide history. Patient has been her usual state of health until approximately 5 days ago having exceptional constipation secondary to narcotic 8 hours ago had an episode of abdominal pain feculent emesis followed by coffee-ground emesis. She is brought to the emergency room for evaluation and found to have epigastric pain abdominal distentiot, left lower quadrant pain and heme positive stool. She started on a bolus of Protonix and referred to the hospitalist for admission. Past Medical History Cardiac Medical History: Reports: Atrial Fibrillation, Hyperlipidema, Hypertension Denies: Coronary Artery Disease, Myocardial Infarction Pulmonary Medical History: Denies: Asthma, Bronchitis, Chronic Obstructive Pulmonary Disease (COPD), Pneumonia, Tuberculosis Neurological Medical History: Denies: Seizures Endocrine Medical History: Reports: Diabetes Mellitus Type 2 Malignancy Medical History: Reports: Breast Cancer Musculoskeltal Medical History: Reports: Arthritis Hematology: Denies: Anemia Past Surgical History Past Surgical History: Reports: Mastectomy Denies: Appendectomy, Section, Cholecystectomy, Coronary Artery Bypass Graft, Gastric Bypass Surgery, Herniorrhaphy, Hysterectomy, Pacemaker, Tonsillectomy, Tubal Ligation Social History Information Source: [facility] Records Lives with: Family Smoking Status: Unknown if Ever Smoked Frequency of Alcohol Use: None Hx Recreational Drug Use: No Drugs: None Hx Prescription Drug Abuse: No - Advance Directive Resuscitation Status: Do Not Resuscitate Family History Family History: Hypertension Parental Family History Reviewed: Yes Children Family History Reviewed: Yes Sibling(s) Family History Reviewed.: Yes Medication/Allergy Home Medications: Amlodipine Besylate [Norvasc 5 mg Tablet] 5 mg PO DAILY 03/10/12 Benazepril HCl [Lotensin 10 Mg Tablet] 10 mg PO DAILY 03/10/12 Pravastatin Sodium 40 mg PO QHS 03/10/12 Nitroglycerin [Nitrostat 0.4 mg (1/150 Gr) Tabs 25/Bottle] 0.4 mg SL Q5MP PRN Ondansetron [Zofran Odt 4 mg Tablet] 4 mg PO Q4HP PRN 12/13/12 Rivaroxaban [Xarelto 15 mg Tablet] 15 mg PO QHS 12/13/12 Sotalol HCl [Betapace Af] 80 mg PO Q12 12/13/12 Empagliflozin [Jardiance] 10 mg PO DAILY 06/05/17 Hydrocodone Bit/Acetaminophen [Hydrocodon-Acetaminophen 5-325] 1 each PO BIDP PRN 06/05/17 Insulin Glargine,Hum.rec.anlog [Lantus] 25 unit SQ QHS 06/05/17 Linagliptin/Metformin HCl [Jentadueto 2.5 mg-500 mg Tab] 1 each PO BID 06/05/17 Cholecalciferol (Vitamin D3) [Vitamin D3] 400 unit PO DAILY 06/11/17 Allergies/Adverse Reactions: cetirizine HCl [From Zyrtec] Allergy (Severe, Verified 06/11/17 08:23) valdecoxib [From Bextra] Allergy (Intermediate, Verified 06/11/17 08:23) tramadol Allergy (Verified 06/11/17 08:23) Review of Systems ROS unobtainable: Due to mental status Gastrointestinal: PRESENT: bloating, constipation Physical Exam Vital Signs: Temp Pulse Resp BP Pulse Ox 98.2 F 76 15 150/109 H 95 07/02/17 21:32 07/02/17 21:32 07/03/17 04:00 07/03/17 01:01 07/03/17 04:00 General appearance: PRESENT: cooperative, mild distress, obese Head exam: PRESENT: atraumatic, normocephalic Eye exam: PRESENT: conjunctiva pink, EOMI, PERRLA. ABSENT: scleral icterus Ear exam: PRESENT: normal external ear exam Mouth exam: PRESENT: moist, tongue midline Neck exam: ABSENT: carotid bruit, JVD, lymphadenopathy, thyromegaly Respiratory exam: PRESENT: clear to auscultation tima. ABSENT: rales, rhonchi, wheezes Cardiovascular exam: PRESENT: irregular rhythm, +S1, +S2, systolic murmur Pulses: PRESENT: normal dorsalis pedis pul Vascular exam: PRESENT: normal capillary refill GI/Abdominal exam: PRESENT: diminished bowel sounds, distended, soft, tenderness. ABSENT: guarding, mass, organolmegaly, rebound Rectal exam: PRESENT: deferred Extremities exam: PRESENT: full ROM. ABSENT: calf tenderness, clubbing, pedal edema Neurological exam: PRESENT: alert, awake, oriented to person, oriented to place , oriented to time, oriented to situation, CN II-XII grossly intact. ABSENT: motor sensory deficit Psychiatric exam: PRESENT: appropriate affect, normal mood. ABSENT: homicidal ideation, suicidal ideation Skin exam: PRESENT: dry, intact, warm. ABSENT: cyanosis, rash Results Impressions: Acute Abdomen Series 07/03/17 00:33 IMPRESSION: NO RADIOGRAPHIC EVIDENCE FOR ACUTE ABDOMINAL DISEASE. Assessment & Plan - Diagnosis (1) GI bleed Qualifiers: GI bleed type/associated pathology: melena Qualified Code(s): K92.1 - Melena Is this a current diagnosis for this admission?: Yes Plan: History suggests upper GI bleed, normal BUN and hemoglobin, concern for chronic anticoagulation on Xarelto which is held. Admit to IMCU with IV Protonix bolus , IV fluid challenge and consultation with gastroenterology (2) A-fib Is this a current diagnosis for this admission?: Yes Plan: Sotalol dependent, Lopressor IV ordered while n.p.o. Xarelto held. (3) Fecal impaction Is this a current diagnosis for this admission?: Yes Plan: Secondary to narcotic use of post operative pain, lactulose and enema ordered (4) Anticoagulation adequate with anticoagulant therapy Is this a current diagnosis for this admission?: Yes Plan: Xarelto held secondary to GI bleed (5) Vomiting Qualifiers: Vomiting type: unspecified Vomiting Intractability: unspecified Nausea presence: with nausea Qualified Code(s): R11.2 - Nausea with vomiting, unspecified Is this a current diagnosis for this admission?: Yes Plan: Correction of the underlying cause with Fleet enema, lactulose and Protonix and symptomatic management (6) Hyperkalemia Is this a current diagnosis for this admission?: Yes Plan: Secondary to fecal impaction IV fluid challenge, lactulose and reevaluation chemistry - Time Time Spent: 50 to 70 Minutes - Inpatient Certification Medical Necessity: Need Close Monitoring Due to Risk of Patient Decompensation
[2017-07-03 09:13] LABS: HEMATOCRIT 32.2 % (36.0-47.0); HEMOGLOBIN 10.8 g/dL (12.0-15.5); HGB HCT DIFFERENCE 0.2; MEAN CORPUSCULAR HEMOGLOBIN 29.6 pg (27.0-33.4); MEAN CORPUSCULAR HGB CONC 33.5 g/dL (32.0-36.0); MEAN CORPUSCULAR VOLUME 88 fl (80-97); RED BLOOD COUNT 3.64 10^6/uL (3.72-5.28); RED CELL DISTRIBUTION WIDTH 16.2 % (11.5-14.0); WHITE BLOOD COUNT 9.6 10^3/uL (4.0-10.5)
[2017-07-03 09:45] LABS: BAND NEUTROPHILS % (MANUAL) 2 % (3-5); BASOPHILS % (MANUAL) 0 % (0-2); EOSINOPHILS % (MANUAL) 3 % (0-6); LYMPHOCYTES % (MANUAL) 38 % (13-45); NUCLEATED RED BLOOD CELLS 6 /100 WBC (0); TOTAL CELLS COUNTED 100
[2017-07-03 09:54] LABS: ANISOCYTOSIS 1+; POLYCHROMASIA SLIGHT; TOXIC GRANULATION SLIGHT
--- NOTE | 2017-07-03 10:17 | EKG REPORT ---
SEVERITY:- ABNORMAL ECG - SINUS RHYTHM PROBABLE INFERIOR INFARCT, AGE INDETERMINATE : Confirmed by: Alannah Ventura 03-Jul-2017 10:16:15
[2017-07-03] MEDS ORDERED: ONDANSETRON 4 MG TAB.RAPDIS PO PRN (12:31)
[2017-07-03] MEDS ORDERED: HYDROCODONE/ACETAMINOPHEN 5-325 MG TABLET PO PRN (12:31)
[2017-07-03] MEDS ORDERED: PIPERACILLIN SODIUM/TAZOBACTAM 3.375 GM in NORMAL SALINE 100 ML IV SCH (12:45)
[2017-07-03] MEDS ORDERED: PHYTONADIONE INJ 10 MG/1 ML AMPULE SUBCUT ONE (13:05)
[2017-07-03 14:09] LABS: HEMATOCRIT 31.8 % (36.0-47.0); HEMOGLOBIN 10.8 g/dL (12.0-15.5); HGB HCT DIFFERENCE 0.6; MEAN CORPUSCULAR HEMOGLOBIN 29.7 pg (27.0-33.4); MEAN CORPUSCULAR HGB CONC 33.8 g/dL (32.0-36.0); MEAN CORPUSCULAR VOLUME 88 fl (80-97); RED BLOOD COUNT 3.62 10^6/uL (3.72-5.28); RED CELL DISTRIBUTION WIDTH 16.1 % (11.5-14.0); WHITE BLOOD COUNT 8.7 10^3/uL (4.0-10.5)
[2017-07-03] MEDS: SOTALOL HCL 80 MG TABLET PO SCH ×2 (14:18→22:05)
[2017-07-03 14:19] LABS: ALANINE AMINOTRANSFERASE 26 U/L (9-52); ALBUMIN 3.9 g/dL (3.5-5.0); ALKALINE PHOSPHATASE 130 U/L (38-126); ANION GAP 14 (5-19); ASPARTATE AMINO TRANSFERASE 100 U/L (14-36); BILIRUBIN,DIRECT 0.5 mg/dL (0.0-0.4); BILIRUBIN,TOTAL 0.8 mg/dL (0.2-1.3); BLOOD UREA NITROGEN 27 mg/dL (7-20); CALCIUM 9.9 mg/dL (8.4-10.2); CARBON DIOXIDE 21 mmol/L (22-30); CHLORIDE 100 mmol/L (98-107); CREATININE RESULT 1.21 mg/dL (0.52-1.25); GLUCOSE 169 mg/dL (75-110); POTASSIUM 5.1 mmol/L (3.6-5.0); SODIUM 135.3 mmol/L (137-145)
[2017-07-03] MEDS ORDERED: SORBITOL 70% SOLUTION 30 ML UDC PR ONE (14:30)
[2017-07-03] MEDS ORDERED: MINERAL OIL 30 ML UDCUP PR ONE (14:30)
[2017-07-03] MEDS ORDERED: GLYCERIN 99.5% (ANHYDROUS) 177 ML PR ONE (14:30)
[2017-07-03] MEDS ORDERED: MAGNESIUM HYDROXIDE SUSP 30 ML UDCUP PR ONE (14:30)
[2017-07-03 15:26] LABS: BAND NEUTROPHILS % (MANUAL) 4 % (3-5); BASOPHILS % (MANUAL) 0 % (0-2); EOSINOPHILS % (MANUAL) 2 % (0-6); LYMPHOCYTES % (MANUAL) 31 % (13-45); NUCLEATED RED BLOOD CELLS 12 /100 WBC (0); TOTAL CELLS COUNTED 100
[2017-07-03 15:27] LABS: ANISOCYTOSIS SLIGHT; POIKILOCYTOSIS 1+
--- NOTE | 2017-07-03 16:26 | PDOC CONSULTATION ---
Consultation Consult Date: 07/03/17 Attending physician:: CHET SAENZ Consult reason:: Coffee ground emesis. LLQ pain History of Present Illness Admission Date/PCP: 07/03/17 04:47 ANISH DEVRIES MD History of Present Illness: I was asked to see this patient by Dr. Thornton overnight. patient was admitted and several GI issues Dr Mendoza has seen this patient this am When I spoke with the patient, she is stable the daughter's are with her they state that she had foul smelling emesis patient had been having some abdominal pain there is no further nausea and vomiting has had some anemia in the past patient had seen Dr Velazquez in the past, colonoscopy had been done Dr Mendoza feels that her LLQ pain could be due fecal impaction will try to get records from previous colonoscopy , but might not be forthcoming since Dr Velazquez's office is closed she will probably need an EGD, rule out possible peptic ulcer disease denies any dysphagia or odynophagia there is some mild early satiety could have had melena there is no ongoing weight loss Past Medical History Cardiac Medical History: Reports: Atrial Fibrillation, Hyperlipidema, Hypertension Denies: Coronary Artery Disease, Myocardial Infarction Pulmonary Medical History: Denies: Asthma, Bronchitis, Chronic Obstructive Pulmonary Disease (COPD), Pneumonia, Tuberculosis Neurological Medical History: Denies: Seizures Endocrine Medical History: Reports: Diabetes Mellitus Type 2 Malignancy Medical History: Reports: Breast Cancer Musculoskeltal Medical History: Reports: Arthritis Hematology: Denies: Anemia Past Surgical History Past Surgical History: Denies: Appendectomy, Section, Cholecystectomy, Coronary Artery Bypass Graft, Gastric Bypass Surgery, Herniorrhaphy, Hysterectomy, Mastectomy, Pacemaker, Tonsillectomy, Tubal Ligation Social History Lives with: Family Smoking Status: Never Smoker Frequency of Alcohol Use: None Hx Recreational Drug Use: No Drugs: None Hx Prescription Drug Abuse: No - Advance Directive Resuscitation Status: Full Code Family History Family History: Reviewed & Not Pertinent Parental Family History Reviewed: Yes Children Family History Reviewed: Unknown Sibling(s) Family History Reviewed.: Unknown Medication/Allergy Home Medications: Amlodipine Besylate [Norvasc 5 mg Tablet] 5 mg PO DAILY 07/03/17 Benazepril HCl [Lotensin 10 Mg Tablet] 10 mg PO DAILY 07/03/17 Cholecalciferol (Vitamin D3) [Vitamin D3 400 Unit Tablet] 400 unit PO DAILY Empagliflozin [Jardiance] 10 mg PO DAILY 07/03/17 Hydrocodone/Acetaminophen [Rodney 5-325 mg Tablet] 1 tab PO Q12HP PRN 07/03/17 Insulin Glargine,Hum.rec.anlog [Lantus Solostar] 25 unit SQ QHS 07/03/17 Linagliptin/Metformin HCl [Jentadueto 2.5 mg-500 mg Tab] 1 each PO Q12 07/03/17 Nitroglycerin [Nitrostat 0.4 mg (1/150 Gr) Tabs 25/Bottle] 1 tab SL Q5MP PRN Ondansetron [Zofran Odt 4 mg Tablet] 4 mg PO Q4HP PRN 07/03/17 Pravastatin Sodium [Pravachol] 40 mg PO QHS 07/03/17 Rivaroxaban [Xarelto 15 mg Tablet] 15 mg PO QHS 07/03/17 Sotalol HCl [Sotalol] 80 mg PO Q12 07/03/17 Allergies/Adverse Reactions: cetirizine HCl [From Zyrtec] Allergy (Severe, Verified 06/11/17 08:23) valdecoxib [From Bextra] Allergy (Intermediate, Verified 06/11/17 08:23) tramadol Allergy (Verified 06/11/17 08:23) Review of Systems Constitutional: ABSENT: fever(s), headache(s), night sweats, weakness Eyes: ABSENT: visual disturbances Ears: ABSENT: hearing changes Nose, Mouth, and Throat: ABSENT: mouth pain Cardiovascular: ABSENT: edema, orthropnea, palpitations Respiratory: ABSENT: dyspnea, hemoptysis Gastrointestinal: PRESENT: melena, nausea, vomiting. ABSENT: hematochezia Genitourinary: ABSENT: dysuria, hematuria Musculoskeletal: ABSENT: deformity, joint swelling Integumentary: ABSENT: lesions, pruritus Neurological: ABSENT: syncope, tingling, tremor(s), vertigo Endocrine: ABSENT: polydipsia, polyphagia, polyuria Hematologic/Lymphatic: ABSENT: easy bruising Physical Exam Vital Signs: Temp Pulse Resp BP Pulse Ox 98.5 F 85 16 124/49 L 98 07/03/17 12:01 07/03/17 12:03 07/03/17 12:03 07/03/17 12:01 07/03/17 12:03 Intake & Output 07/02/17 07/03/17 07/04/17 06:59 06:59 06:59 Weight 72.1 kg General appearance: PRESENT: no acute distress, well-developed, well-nourished Head exam: PRESENT: atraumatic, normocephalic Eye exam: PRESENT: EOMI, PERRLA. ABSENT: nystagmus, periorbital swelling, scleral icterus Mouth exam: PRESENT: moist, neck supple Throat exam: ABSENT: tonsillar exudate, tonsillogmegaly Neck exam: ABSENT: meningismus, tenderness, thyromegaly Respiratory exam: PRESENT: symmetrical. ABSENT: tachypnea, unlabored, wheezes Cardiovascular exam: PRESENT: RRR, +S1, +S2 GI/Abdominal exam: PRESENT: soft. ABSENT: rebound, rigid, tenderness Extremities exam: ABSENT: joint swelling Musculoskeletal exam: PRESENT: full ROM Neurological exam: PRESENT: oriented to time, oriented to situation, CN II-XII grossly intact Skin exam: PRESENT: normal color. ABSENT: mottled, pallor, petechiae, urticaria , vesicles Results Laboratory Results: 07/03/17 13:09 07/03/17 13:09 07/03/17 07/03/17 07/03/17 06:15 08:52 13:09 WBC Cancelled 9.6 8.7 RBC Cancelled 3.64 L 3.62 L Hgb Cancelled 10.8 L 10.8 L Hct Cancelled 32.2 L 31.8 L MCV Cancelled 88 88 MCH Cancelled 29.6 29.7 MCHC Cancelled 33.5 33.8 RDW Cancelled 16.2 H 16.1 H Plt Count Cancelled 71 L 73 L Seg Neutrophils % Cancelled Not Reportable Not Reportable Lymphocytes % Cancelled Not Reportable Not Reportable Monocytes % Cancelled Not Reportable Not Reportable Eosinophils % Cancelled Not Reportable Not Reportable Basophils % Cancelled Not Reportable Not Reportable Absolute Neutrophils Cancelled Not Reportable Not Reportable Absolute Lymphocytes Cancelled Not Reportable Not Reportable Absolute Monocytes Cancelled Not Reportable Not Reportable Absolute Eosinophils Cancelled Not Reportable Not Reportable Absolute Basophils Cancelled Not Reportable Not Reportable Sodium Potassium Chloride Carbon Dioxide Anion Gap BUN Creatinine Est GFR ( Amer) Est GFR (Non-Af Amer) Glucose Calcium Magnesium Total Bilirubin AST ALT Alkaline Phosphatase Total Protein Albumin 07/03/17 07/03/17 13:09 13:09 WBC RBC Hgb Hct MCV MCH MCHC RDW Plt Count Seg Neutrophils % Lymphocytes % Monocytes % Eosinophils % Basophils % Absolute Neutrophils Absolute Lymphocytes Absolute Monocytes Absolute Eosinophils Absolute Basophils Sodium 135.3 L Potassium 5.1 H Chloride 100 Carbon Dioxide 21 L Anion Gap 14 BUN 27 H Creatinine 1.21 Est GFR ( Amer) 52 L Est GFR (Non-Af Amer) 43 L Glucose 169 H Calcium 9.9 Magnesium 1.9 Total Bilirubin 0.8 AST 100 H ALT 26 Alkaline Phosphatase 130 H Total Protein 7.0 Albumin 3.9 Impressions: Acute Abdomen Series 07/03/17 00:33 IMPRESSION: NO RADIOGRAPHIC EVIDENCE FOR ACUTE ABDOMINAL DISEASE. Assessment & Plan - Diagnosis (1) Fecal impaction Is this a current diagnosis for this admission?: Yes Plan: patient likely needs to be started on a regimen consisting of Miralax and stool softeners will try to get previous colonoscopy reports to see if she needs to have another one she could very likely have internal hemorrhoids will continue to follow (2) GI bleed Qualifiers: GI bleed type/associated pathology: melena Qualified Code(s): K92.1 - Melena Is this a current diagnosis for this admission?: Yes Plan: she was on anticoagulation and this has been stopped, patient could have peptic ulcer disease start her on a PPI patient will need EGD done Risks, benefits and alternatives are explained to the patient in detail further recommendations to follow she is willing to proceed - Time Time Spent: 50 to 70 Minutes
[2017-07-03] MEDS: NORMAL SALINE 1000 ML 1,000 ML IV PRN (19:04)
[2017-07-03] MEDS: NORMAL SALINE 100 ML with PANTOPRAZOLE SODIUM 80 MG IV PRN ×2 (19:04)
[2017-07-03] MEDS: PIPERACILLIN SODIUM/TAZOBACTAM 3.375 GM in DEXTROSE 5%-WATER 100 ML IV SCH ×2 (19:05→22:05)
[2017-07-03 20:37] LABS: HEMATOCRIT 28.2 % (36.0-47.0); HEMOGLOBIN 9.4 g/dL (12.0-15.5); MEAN CORPUSCULAR HEMOGLOBIN 29.6 pg (27.0-33.4); MEAN CORPUSCULAR HGB CONC 33.5 g/dL (32.0-36.0); MEAN CORPUSCULAR VOLUME 89 fl (80-97); RED BLOOD COUNT 3.19 10^6/uL (3.72-5.28); RED CELL DISTRIBUTION WIDTH 16.2 % (11.5-14.0); WHITE BLOOD COUNT 7.9 10^3/uL (4.0-10.5)
[2017-07-03 20:48] LABS: BAND NEUTROPHILS % (MANUAL) 5 % (3-5); BASOPHILS % (MANUAL) 0 % (0-2); EOSINOPHILS % (MANUAL) 0 % (0-6); LYMPHOCYTES % (MANUAL) 32 % (13-45); NUCLEATED RED BLOOD CELLS 7 /100 WBC (0); TOTAL CELLS COUNTED 100
[2017-07-03 20:56] LABS: ANISOCYTOSIS 1+; POLYCHROMASIA 1+; SMUDGE CELLS PRESENT; TOXIC GRANULATION 1+; TOXIC VACUOLATION PRESENT
[2017-07-03] MEDS: INSULIN GLARGINE,HUM.REC.ANLOG 300 UNIT/3 ML INSULN.PEN SUBCUT SCH (23:29)
[2017-07-03] MEDS: INSULIN LISPRO 100 UNIT/ML 3 ML VIAL SUBCUT PRN (23:33)
[2017-07-04] MEDS: NORMAL SALINE 100 ML with PANTOPRAZOLE SODIUM 80 MG IV PRN ×4 (03:05→16:01)
[2017-07-04] MEDS: PIPERACILLIN SODIUM/TAZOBACTAM 3.375 GM in DEXTROSE 5%-WATER 100 ML IV SCH ×3 (03:06→21:56)
[2017-07-04 05:05] LABS: ANION GAP 12 (5-19); BLOOD UREA NITROGEN 24 mg/dL (7-20); CARBON DIOXIDE 24 mmol/L (22-30); CHLORIDE 102 mmol/L (98-107); CREATININE RESULT 1.18 mg/dL (0.52-1.25); GLUCOSE 139 mg/dL (75-110); MAGNESIUM 1.9 mg/dL (1.6-2.3); SODIUM 137.6 mmol/L (137-145)
[2017-07-04 05:23] LABS: POTASSIUM 4.1 mmol/L (3.6-5.0)
[2017-07-04] MEDS: NORMAL SALINE 1000 ML 1,000 ML IV PRN (05:47)
[2017-07-04] MEDS ORDERED: PROPOFOL INJ 200 MG/20 ML VIAL IV ONE (07:23)
[2017-07-04] MEDS ORDERED: NORMAL SALINE 1000 ML 1,000 ML IV ONE (08:46)
[2017-07-04] MEDS ORDERED: MAGNESIUM CITRATE 296 ML BOTTLE PO ONE ×2 (09:00→16:00)
[2017-07-04] MEDS ORDERED: PHENAZOPYRIDINE HCL 100 MG TABLET PO ONE (09:30)
--- NOTE | 2017-07-04 11:54 | Operative Report ---
Operative Report DATE OF SURGERY: 07/04/17 Operative Report: The risks benefits and alternatives of the procedure explained to the patient in detail and informed consent is obtained.A GIF Olympus video scope was inserted into the patient's mouth and hypopharynx ,the esophagus is identified intubated and insufflated, the scope was then advanced through the esophagus stomach and duodenum, retroflexion maneuver is done, the esophagus stomach and first and second portions of the duodenum examined PREOPERATIVE DIAGNOSIS: Coffee-ground emesis POSTOPERATIVE DIAGNOSIS: Esophagitis. Esophageal erosions. Gastritis. Hiatal hernia. Biopsies obtained to rule out for Helicobacter pylori OPERATION: EGD with biopsy SURGEON: CHET SAENZ ANESTHESIA: LMAC TISSUE REMOVED OR ALTERED: Gastric mucosal specimen obtained to rule out Helicobacter pylori COMPLICATIONS: None. ESTIMATED BLOOD LOSS: None. INTRAOPERATIVE FINDINGS: As described above. PROCEDURE: Patient tolerated procedure well. No immediate postprocedure complications are noted. Patient sent back to her room in good condition. Can resume diet advance as tolerated We will wait on biopsies Treat for Helicobacter pylori if necessary Follow-up as outpatient
[2017-07-04] MEDS ORDERED: LIDOCAINE 2% VISCOUS SOLN 20 ML UDCUP PO ONE (12:16)
[2017-07-04] MEDS ORDERED: METOCLOPRAMIDE HCL ORAL SOLN 10 MG/10 ML UDCUP PO ONE (12:16)
[2017-07-04] MEDS ORDERED: MAG HYDROX/AL HYDROX/SIMETH SUSP 30 ML UDCUP PO ONE (12:16)
[2017-07-04] MEDS: SOTALOL HCL 80 MG TABLET PO SCH ×2 (12:52→21:56)
[2017-07-04] MEDS: PHENAZOPYRIDINE HCL 100 MG TABLET PO SCH ×2 (12:56→21:56)
[2017-07-04] MEDS ORDERED: FLUCONAZOLE 400 MG/NS RTU 400 MG/200 ML RTUPB IV ONE (13:15)
--- NOTE | 2017-07-04 17:02 | PDOC PROGRESS REPORT ---
Subjective Progress Note for:: 07/04/17 Subjective:: Patient seen earlier today on morning rounds. Patient is noted to have her mastectomy scar draining today. Patient is to undergo upper endoscopy today. Patient has had minimal bowel movement since last night. Review of systems is limited by patient dementia Physical Exam Vital Signs: Temp Pulse Resp BP Pulse Ox 97.6 F 75 21 H 118/49 L 99 07/04/17 13:46 07/04/17 13:46 07/04/17 13:46 07/04/17 13:46 07/04/17 13:46 Intake & Output 07/03/17 07/04/17 07/05/17 06:59 06:59 06:59 Intake Total 1954 300 Output Total 0 Balance 1954 300 Weight 72.1 kg Exam: General: Awake alert and oriented x1, no acute respiratory distress HEENT: AT/NC, PERRL, EOMI, oropharynx is moist, pink, no scleral icterus, no conjunctival injection Neck: No JVD, trachea midline Chest: Clear to auscultation bilaterally, no wheezes rhonchi or rales CV: RRR, normal S1 and S2, no rub, or gallop; 2/6 sm llsb Abdomen: Soft, nontender to palpation, nondistended, active bowel sounds; no rebound, rigidity, or guarding Extremities: No cyanosis, clubbing or edema Neuro: Cranial nerves II through XII are grossly intact without focal deficits; awake alert and oriented x1 Psych: Normal mood and affect Skin: left mastectomy scar well healing with area of erythema and whitish drainage at the NIMA site without lymphangitic streaking, inframammary areas with erythematous macular rash Results Laboratory Results: 07/03/17 20:23 07/04/17 04:13 07/03/17 07/03/17 07/04/17 18:55 20:23 04:13 WBC Cancelled 7.9 RBC Cancelled 3.19 L Hgb Cancelled 9.4 L Hct Cancelled 28.2 L MCV Cancelled 89 MCH Cancelled 29.6 MCHC Cancelled 33.5 RDW Cancelled 16.2 H Plt Count Cancelled 67 L Seg Neutrophils % Cancelled Not Reportable Lymphocytes % Cancelled Not Reportable Monocytes % Cancelled Not Reportable Eosinophils % Cancelled Not Reportable Basophils % Cancelled Not Reportable Absolute Neutrophils Cancelled Not Reportable Absolute Lymphocytes Cancelled Not Reportable Absolute Monocytes Cancelled Not Reportable Absolute Eosinophils Cancelled Not Reportable Absolute Basophils Cancelled Not Reportable Sodium 137.6 Potassium 4.1 D Chloride 102 Carbon Dioxide 24 Anion Gap 12 BUN 24 H Creatinine 1.18 Est GFR ( Amer) 53 L Est GFR (Non-Af Amer) 44 L Glucose 139 H Calcium 9.0 Magnesium 1.9 Impressions: Acute Abdomen Series 07/03/17 00:33 IMPRESSION: NO RADIOGRAPHIC EVIDENCE FOR ACUTE ABDOMINAL DISEASE. Assessment & Plan - Diagnosis (1) GI bleed Qualifiers: GI bleed type/associated pathology: melena Qualified Code(s): K92.1 - Melena Is this a current diagnosis for this admission?: Yes Plan: Patient underwent upper endoscopy today which revealed esophagitis, esophageal erosions, hiatal hernia, gastritis. Biopsies were obtained. Plan for lower endoscopy. Continue Protonix 40 mg IV twice daily. Will add Carafate to this. Continue to monitor H&H. Transfuse if drops below 8. (2) Sepsis, Gram negative Is this a current diagnosis for this admission?: Yes Plan: Secondary to gram-negative rods in the urine patient currently on Zosyn. (3) Urinary tract infection Qualifiers: Urinary tract infection type: acute cystitis Hematuria presence: without hematuria Qualified Code(s): N30.00 - Acute cystitis without hematuria Is this a current diagnosis for this admission?: Yes Plan: Growing gram-negative rods on Zosyn (4) Thrombocytopenia Is this a current diagnosis for this admission?: Yes Plan: Secondary to sepsis. Have also sent antiplatelet antibodies. Hold anticoagulation secondary to thrombocytopenia and acute bleeding (5) Esophagitis determined by endoscopy Is this a current diagnosis for this admission?: Yes (6) Esophageal erosions Is this a current diagnosis for this admission?: Yes (7) Hiatal hernia Is this a current diagnosis for this admission?: Yes (8) A-fib Qualifiers: Atrial fibrillation type: paroxysmal Qualified Code(s): I48.0 - Paroxysmal atrial fibrillation Is this a current diagnosis for this admission?: Yes Plan: Continue sotalol and as needed metoprolol (9) Anticoagulation adequate with anticoagulant therapy Is this a current diagnosis for this admission?: Yes Plan: Hold anticoagulation secondary to thrombocytopenia and acute bleeding (10) Fecal impaction Is this a current diagnosis for this admission?: Yes Plan: We will give patient a bottle of magnesium citrate. Plan for lower endoscopy. (11) Hyperkalemia Is this a current diagnosis for this admission?: Yes Plan: Improved secondary to hemolysis (12) Anemia associated with acute blood loss Is this a current diagnosis for this admission?: Yes Plan: Continue to monitor H&H. Transfuse if drops below 8. (13) Diabetes mellitus Qualifiers: Diabetes mellitus type: type 2 Diabetes mellitus complication status: with unspecified complications Diabetes mellitus terminal manager insulin use: with retirement use Qualified Code(s): E11.8 - Type 2 diabetes mellitus with unspecified complications; Z79.4 - alf (current) use of insulin Is this a current diagnosis for this admission?: Yes Plan: Continue Lantus and sliding scale insulin. - Time Time Spent with patient: 25-34 minutes Medications reviewed and adjusted accordingly: Yes
[2017-07-04] MEDS: NYSTATIN TOPICAL POWDER 15 GM TP SCH (18:04)
[2017-07-04] MEDS: SUCRALFATE SUSP 1 GM/10 ML UDCUP PO SCH (18:07)
[2017-07-04] MEDS ORDERED: ZINC OXIDE 20% OINTMENT 28.35 GM TP PRN (18:46)
[2017-07-04] MEDS: INSULIN GLARGINE,HUM.REC.ANLOG 300 UNIT/3 ML INSULN.PEN SUBCUT SCH (21:56)
[2017-07-04 22:00] LABS: HEMATOCRIT 29.9 % (36.0-47.0); HGB HCT DIFFERENCE 0.1; MEAN CORPUSCULAR HEMOGLOBIN 29.5 pg (27.0-33.4); MEAN CORPUSCULAR HGB CONC 33.6 g/dL (32.0-36.0); MEAN CORPUSCULAR VOLUME 88 fl (80-97); RED CELL DISTRIBUTION WIDTH 16.5 % (11.5-14.0)
[2017-07-04 22:08] LABS: BAND NEUTROPHILS % (MANUAL) 2 % (3-5); BASOPHILS % (MANUAL) 0 % (0-2); EOSINOPHILS % (MANUAL) 2 % (0-6); LYMPHOCYTES % (MANUAL) 31 % (13-45); NUCLEATED RED BLOOD CELLS 14 /100 WBC (0); TOTAL CELLS COUNTED 100
[2017-07-04 22:12] LABS: ANISOCYTOSIS 1+; PLATELET CLUMPS PRESENT; POLYCHROMASIA 2+
[2017-07-04 22:13] LABS: WHITE BLOOD COUNT 9.4 10^3/uL (4.0-10.5)
[2017-07-05] MEDS: INSULIN LISPRO 100 UNIT/ML 3 ML VIAL SUBCUT PRN ×2 (01:04→18:24)
[2017-07-05 01:23] LABS: HEMATOCRIT 29.8 % (36.0-47.0); HGB HCT DIFFERENCE 0.2; MEAN CORPUSCULAR HEMOGLOBIN 29.7 pg (27.0-33.4); MEAN CORPUSCULAR HGB CONC 33.6 g/dL (32.0-36.0); MEAN CORPUSCULAR VOLUME 89 fl (80-97); RED BLOOD COUNT 3.36 10^6/uL (3.72-5.28); RED CELL DISTRIBUTION WIDTH 16.3 % (11.5-14.0); WHITE BLOOD COUNT 8.5 10^3/uL (4.0-10.5)
[2017-07-05] MEDS: PIPERACILLIN SODIUM/TAZOBACTAM 3.375 GM in DEXTROSE 5%-WATER 100 ML IV SCH (03:37)
[2017-07-05] MEDS: NORMAL SALINE 100 ML with PANTOPRAZOLE SODIUM 80 MG IV PRN ×2 (05:29)
[2017-07-05] MEDS: PHENAZOPYRIDINE HCL 100 MG TABLET PO SCH ×3 (05:29→21:46)
[2017-07-05 07:01] LABS: ANION GAP 8 (5-19); BLOOD UREA NITROGEN 12 mg/dL (7-20); CALCIUM 8.4 mg/dL (8.4-10.2); CARBON DIOXIDE 21 mmol/L (22-30); CHLORIDE 111 mmol/L (98-107); CREATININE RESULT 1.04 mg/dL (0.52-1.25); GLUCOSE 81 mg/dL (75-110); POTASSIUM 3.5 mmol/L (3.6-5.0); SODIUM 140.3 mmol/L (137-145)
[2017-07-05] MEDS ORDERED: POTASSIUM CHLORIDE 10 MEQ TABLET.SA PO ONE (07:28)
[2017-07-05] MEDS ORDERED: LANSOPRAZOLE 30 MG TAB.RAP.DR PO ONE (07:42)
[2017-07-05] MEDS: HYDROCODONE/ACETAMINOPHEN 5-325 MG TABLET PO PRN ×2 (08:24→15:00)
[2017-07-05] MEDS: SUCRALFATE SUSP 1 GM/10 ML UDCUP PO SCH ×2 (09:47→18:24)
[2017-07-05] MEDS: NYSTATIN CREAM 15 GM TP SCH ×2 (09:47→18:24)
[2017-07-05] MEDS: SOTALOL HCL 80 MG TABLET PO SCH ×2 (09:47→21:45)
[2017-07-05] MEDS: CEFTRIAXONE 1 GM/D5W RTU 1 GM/50 ML RTUPB IV SCH (09:47)
[2017-07-05] MEDS: NYSTATIN TOPICAL POWDER 15 GM TP SCH ×2 (09:58→18:25)
[2017-07-05] MEDS ORDERED: FLUCONAZOLE 200 MG/NS RTU 100 ML IV SCH (10:00)
--- NOTE | 2017-07-05 14:34 | PDOC PROGRESS REPORT ---
Subjective Progress Note for:: 07/05/17 Subjective:: Patient seen earlier today on morning rounds. Patient is noted to have her mastectomy scar draining today. Patient reports that she feels improved. She is having several bowel movements after taking magnesium citrate yesterday. Plan for lower endoscopy on Friday. Patient denies chest pain, shortness of breath, abdominal pain, nausea, vomiting , fevers, chills, diarrhea, constipation, headache, new onset weakness. Physical Exam Vital Signs: Temp Pulse Resp BP Pulse Ox 98.4 F 72 18 131/51 H 96 07/05/17 03:15 07/05/17 03:15 07/05/17 03:15 07/05/17 03:15 07/05/17 03:15 Intake & Output 07/04/17 07/05/17 07/06/17 06:59 06:59 06:59 Intake Total 1954 47 Output Total 100 Balance 1954 46 Weight 72.1 kg 77.9 kg Exam: General: Awake alert and oriented x1, no acute respiratory distress HEENT: AT/NC, PERRL, EOMI, oropharynx is moist, pink, no scleral icterus, no conjunctival injection Neck: No JVD, trachea midline Chest: Clear to auscultation bilaterally, no wheezes rhonchi or rales CV: RRR, normal S1 and S2, no rub, or gallop; 2/6 sm llsb Abdomen: Soft, nontender to palpation, nondistended, active bowel sounds; no rebound, rigidity, or guarding Extremities: No cyanosis, clubbing or edema Neuro: Cranial nerves II through XII are grossly intact without focal deficits; awake alert and oriented x1 Psych: Normal mood and affect Skin: left mastectomy scar well healing with area of erythema and whitish drainage at the NIMA site without lymphangitic streaking, inframammary areas with erythematous macular rash Results Laboratory Results: 07/05/17 01:08 07/05/17 06:02 07/04/17 07/04/17 07/04/17 16:31 17:55 21:20 WBC Cancelled 9.4 Cancelled RBC Cancelled 3.40 L Cancelled Hgb Cancelled 10.0 L Cancelled Hct Cancelled 29.9 L Cancelled MCV Cancelled 88 Cancelled MCH Cancelled 29.5 Cancelled MCHC Cancelled 33.6 Cancelled RDW Cancelled 16.5 H Cancelled Plt Count Cancelled Cancelled Seg Neutrophils % Cancelled Not Reportable Cancelled Lymphocytes % Cancelled Not Reportable Cancelled Monocytes % Cancelled Not Reportable Cancelled Eosinophils % Cancelled Not Reportable Cancelled Basophils % Cancelled Not Reportable Cancelled Absolute Neutrophils Cancelled Not Reportable Cancelled Absolute Lymphocytes Cancelled Not Reportable Cancelled Absolute Monocytes Cancelled Not Reportable Cancelled Absolute Eosinophils Cancelled Not Reportable Cancelled Absolute Basophils Cancelled Not Reportable Cancelled Sodium Potassium Chloride Carbon Dioxide Anion Gap BUN Creatinine Est GFR ( Amer) Est GFR (Non-Af Amer) Glucose Calcium 07/05/17 07/05/17 01:08 06:02 WBC 8.5 RBC 3.36 L Hgb 10.0 L Hct 29.8 L MCV 89 MCH 29.7 MCHC 33.6 RDW 16.3 H Plt Count 51 L Seg Neutrophils % Lymphocytes % Monocytes % Eosinophils % Basophils % Absolute Neutrophils Absolute Lymphocytes Absolute Monocytes Absolute Eosinophils Absolute Basophils Sodium 140.3 Potassium 3.5 L Chloride 111 H Carbon Dioxide 21 L Anion Gap 8 BUN 12 Creatinine 1.04 Est GFR ( Amer) > 60 Est GFR (Non-Af Amer) 51 L Glucose 81 Calcium 8.4 Impressions: Acute Abdomen Series 07/03/17 00:33 IMPRESSION: NO RADIOGRAPHIC EVIDENCE FOR ACUTE ABDOMINAL DISEASE. Assessment & Plan - Diagnosis (1) GI bleed Qualifiers: GI bleed type/associated pathology: melena Qualified Code(s): K92.1 - Melena Is this a current diagnosis for this admission?: Yes Plan: Patient underwent upper endoscopy which revealed esophagitis, esophageal erosions, hiatal hernia, gastritis. Biopsies were pending. Plan for lower endoscopy. Hemoglobin stable. Prevacid twice daily and Carafate (2) Sepsis, Gram negative Is this a current diagnosis for this admission?: Yes Plan: Secondary Klebsiella in the urine patient transition to Rocephin (3) Urinary tract infection Qualifiers: Urinary tract infection type: acute cystitis Hematuria presence: without hematuria Qualified Code(s): N30.00 - Acute cystitis without hematuria Is this a current diagnosis for this admission?: Yes Plan: Klebsiella transition to Rocephin (4) Thrombocytopenia Is this a current diagnosis for this admission?: Yes Plan: Secondary to sepsis. Have also sent antiplatelet antibodies. Hold anticoagulation secondary to thrombocytopenia and acute bleeding Stop Zosyn as this may worsen from cytopenia. Place patient on Rocephin. (5) Esophagitis determined by endoscopy Is this a current diagnosis for this admission?: Yes (6) Esophageal erosions Is this a current diagnosis for this admission?: Yes (7) Hiatal hernia Is this a current diagnosis for this admission?: Yes (8) A-fib Qualifiers: Atrial fibrillation type: paroxysmal Qualified Code(s): I48.0 - Paroxysmal atrial fibrillation Is this a current diagnosis for this admission?: Yes Plan: Continue sotalol and as needed metoprolol (9) Anticoagulation adequate with anticoagulant therapy Is this a current diagnosis for this admission?: Yes Plan: Hold anticoagulation secondary to thrombocytopenia and acute bleeding (10) Fecal impaction Is this a current diagnosis for this admission?: Yes Plan: Improved (11) Hyperkalemia Is this a current diagnosis for this admission?: Yes (12) Anemia associated with acute blood loss Is this a current diagnosis for this admission?: Yes Plan: Continue to monitor H&H. Transfuse if drops below 8. (13) Diabetes mellitus Qualifiers: Diabetes mellitus type: type 2 Diabetes mellitus complication status: with unspecified complications Diabetes mellitus fci insulin use: with telephoto engineer use Qualified Code(s): E11.8 - Type 2 diabetes mellitus with unspecified complications; Z79.4 - mounter flutes and piccolos (current) use of insulin Is this a current diagnosis for this admission?: Yes Plan: Continue Lantus and sliding scale insulin. - Time Time Spent with patient: 35 or more minutes Medications reviewed and adjusted accordingly: Yes Anticipated discharge: Home with Homehealth Within: within 48 hours
[2017-07-05] MEDS: LANSOPRAZOLE 30 MG TAB.RAP.DR PO SCH (18:24)
[2017-07-06] MEDS: HYDROCODONE/ACETAMINOPHEN 5-325 MG TABLET PO PRN ×3 (00:36→20:18)
[2017-07-06] MEDS: INSULIN GLARGINE,HUM.REC.ANLOG 300 UNIT/3 ML INSULN.PEN SUBCUT SCH ×2 (00:36→22:15)
[2017-07-06] MEDS: INSULIN LISPRO 100 UNIT/ML 3 ML VIAL SUBCUT PRN ×3 (00:37→22:14)
[2017-07-06 04:53] LABS: HEMATOCRIT 25.5 % (36.0-47.0); HEMOGLOBIN 8.8 g/dL (12.0-15.5); HGB HCT DIFFERENCE 0.9; MEAN CORPUSCULAR HEMOGLOBIN 30.5 pg (27.0-33.4); MEAN CORPUSCULAR HGB CONC 34.6 g/dL (32.0-36.0); MEAN CORPUSCULAR VOLUME 88 fl (80-97); RED BLOOD COUNT 2.89 10^6/uL (3.72-5.28); RED CELL DISTRIBUTION WIDTH 16.4 % (11.5-14.0)
[2017-07-06 05:08] LABS: ANION GAP 9 (5-19); BLOOD UREA NITROGEN 12 mg/dL (7-20); CALCIUM 9.4 mg/dL (8.4-10.2); CARBON DIOXIDE 22 mmol/L (22-30); CHLORIDE 107 mmol/L (98-107); CREATININE RESULT 1.08 mg/dL (0.52-1.25); GLUCOSE 134 mg/dL (75-110); MAGNESIUM 1.8 mg/dL (1.6-2.3); PHOSPHORUS 3.7 mg/dL (2.5-4.5); POTASSIUM 4.3 mmol/L (3.6-5.0); SODIUM 137.9 mmol/L (137-145)
[2017-07-06 05:19] LABS: BAND NEUTROPHILS % (MANUAL) 1 % (3-5); BASOPHILS % (MANUAL) 1 % (0-2); EOSINOPHILS % (MANUAL) 1 % (0-6); LYMPHOCYTES % (MANUAL) 53 % (13-45); NUCLEATED RED BLOOD CELLS 11 /100 WBC (0); TOTAL CELLS COUNTED 100
[2017-07-06 05:25] LABS: ANISOCYTOSIS 1+; BURR CELLS 2+; POIKILOCYTOSIS SLIGHT; POLYCHROMASIA SLIGHT; SCHISTOCYTES SLIGHT; TARGET CELLS SLIGHT
[2017-07-06 05:29] LABS: WHITE BLOOD COUNT 8.7 10^3/uL (4.0-10.5)
[2017-07-06] MEDS: LANSOPRAZOLE 30 MG TAB.RAP.DR PO SCH ×2 (06:01→16:31)
[2017-07-06] MEDS: PHENAZOPYRIDINE HCL 100 MG TABLET PO SCH ×3 (06:01→22:14)
[2017-07-06 08:34] LABS: HEMATOCRIT 25.7 % (36.0-47.0); HGB HCT DIFFERENCE 1.3; MEAN CORPUSCULAR HEMOGLOBIN 30.7 pg (27.0-33.4); MEAN CORPUSCULAR HGB CONC 34.8 g/dL (32.0-36.0); MEAN CORPUSCULAR VOLUME 88 fl (80-97); RED BLOOD COUNT 2.91 10^6/uL (3.72-5.28); RED CELL DISTRIBUTION WIDTH 16.4 % (11.5-14.0); WHITE BLOOD COUNT 9.4 10^3/uL (4.0-10.5)
[2017-07-06 08:52] LABS: BAND NEUTROPHILS % (MANUAL) 2 % (3-5); BASOPHILS % (MANUAL) 0 % (0-2); EOSINOPHILS % (MANUAL) 2 % (0-6); LYMPHOCYTES % (MANUAL) 41 % (13-45); TOTAL CELLS COUNTED 100
[2017-07-06 08:54] LABS: NUCLEATED RED BLOOD CELLS 18 /100 WBC (0)
[2017-07-06 08:57] LABS: ANISOCYTOSIS 1+; POLYCHROMASIA SLIGHT
[2017-07-06] MEDS: SOTALOL HCL 80 MG TABLET PO SCH ×2 (09:08→22:14)
[2017-07-06] MEDS: SUCRALFATE SUSP 1 GM/10 ML UDCUP PO SCH ×2 (09:09→17:49)
[2017-07-06] MEDS: CEFTRIAXONE 1 GM/D5W RTU 1 GM/50 ML RTUPB IV SCH (09:10)
[2017-07-06] MEDS: NYSTATIN CREAM 15 GM TP SCH ×2 (09:17→17:50)
[2017-07-06] MEDS: NYSTATIN TOPICAL POWDER 15 GM TP SCH ×2 (09:25→17:52)
[2017-07-06] MEDS ORDERED: LIDOCAINE 2% VISCOUS SOLN 20 ML UDCUP PO PRN (10:21)
[2017-07-06] MEDS ORDERED: MAG HYDROX/AL HYDROX/SIMETH SUSP 30 ML UDCUP PO ONE (13:00)
[2017-07-06] MEDS ORDERED: LIDOCAINE 2% VISCOUS SOLN 20 ML UDCUP PO ONE (13:00)
[2017-07-06] MEDS ORDERED: PEG 3350/NA SULF,BICARB,CL/KCL 4000 ML PO ONE (13:00)
[2017-07-06] MEDS ORDERED: KETOROLAC TROMETHAMINE INJ/PF 30 MG/1 ML SDV IV ONE (13:00)
--- NOTE | 2017-07-06 14:58 | PDOC PROGRESS REPORT ---
Subjective Progress Note for:: 07/06/17 Subjective:: Patient seen earlier today on morning rounds. Daughter is present at bedside. Complaints of midepigastric and left upper quadrant pain. Patient denies chest pain, shortness of breath, nausea, vomiting, fevers, chills , diarrhea, constipation, headache, new onset weakness. Physical Exam Vital Signs: Temp Pulse Resp BP Pulse Ox 98.4 F 68 18 148/51 H 98 07/06/17 12:19 07/06/17 14:00 07/06/17 12:19 07/06/17 12:19 07/06/17 12:19 Intake & Output 07/05/17 07/06/17 07/07/17 06:59 06:59 06:59 Intake Total 4722 1178 742 Output Total 100 700 600 Balance 4622 478 142 Weight 77.9 kg 73.9 kg Exam: General: Awake alert and oriented x1, no acute respiratory distress HEENT: AT/NC, PERRL, EOMI, oropharynx is moist, pink, no scleral icterus, no conjunctival injection Neck: No JVD, trachea midline Chest: Clear to auscultation bilaterally, no wheezes rhonchi or rales CV: RRR, normal S1 and S2, no rub, or gallop; 2/6 sm llsb Abdomen: Soft, mildly tender to deep palpation LUQ, nondistended, active bowel sounds; no rebound, rigidity, or guarding Extremities: No cyanosis, clubbing or edema Neuro: Cranial nerves II through XII are grossly intact without focal deficits; awake alert and oriented x1 Psych: Normal mood and affect Skin: left mastectomy scar well healing with minor area of erythema and whitish drainage at the NIMA site without lymphangitic streaking, much improved Results Laboratory Results: 07/06/17 08:23 07/06/17 04:18 07/06/17 07/06/17 07/06/17 04:18 04:18 08:23 WBC 8.7 9.4 RBC 2.89 L 2.91 L Hgb 8.8 L 9.0 L Hct 25.5 L 25.7 L MCV 88 88 MCH 30.5 30.7 MCHC 34.6 34.8 RDW 16.4 H 16.4 H Plt Count 48 L 46 L Seg Neutrophils % Not Reportable Not Reportable Lymphocytes % Not Reportable Not Reportable Monocytes % Not Reportable Not Reportable Eosinophils % Not Reportable Not Reportable Basophils % Not Reportable Not Reportable Absolute Neutrophils Not Reportable Not Reportable Absolute Lymphocytes Not Reportable Not Reportable Absolute Monocytes Not Reportable Not Reportable Absolute Eosinophils Not Reportable Not Reportable Absolute Basophils Not Reportable Not Reportable Sodium 137.9 Potassium 4.3 Chloride 107 Carbon Dioxide 22 Anion Gap 9 BUN 12 Creatinine 1.08 Est GFR ( Amer) 59 L Est GFR (Non-Af Amer) 49 L Glucose 134 H Calcium 9.4 Phosphorus 3.7 Magnesium 1.8 Impressions: Acute Abdomen Series 07/03/17 00:33 IMPRESSION: NO RADIOGRAPHIC EVIDENCE FOR ACUTE ABDOMINAL DISEASE. Assessment & Plan - Diagnosis (1) GI bleed Qualifiers: GI bleed type/associated pathology: melena Qualified Code(s): K92.1 - Melena Is this a current diagnosis for this admission?: Yes Plan: Patient underwent upper endoscopy which revealed esophagitis, esophageal erosions, hiatal hernia, gastritis. Biopsies were pending. Plan for lower endoscopy. Hemoglobin stable. Prevacid twice daily and Carafate (2) Sepsis, Gram negative Is this a current diagnosis for this admission?: Yes Plan: Secondary Klebsiella in the urine On Rocephin (3) Urinary tract infection Qualifiers: Urinary tract infection type: acute cystitis Hematuria presence: without hematuria Qualified Code(s): N30.00 - Acute cystitis without hematuria Is this a current diagnosis for this admission?: Yes Plan: Klebsiella on day #3 of treatment (4) Thrombocytopenia Is this a current diagnosis for this admission?: Yes Plan: Secondary to sepsis. Have also sent antiplatelet antibodies. Hold anticoagulation secondary to thrombocytopenia and acute bleeding Have stopped Zosyn as this may worsen thrombocytopenia. Patient's platelets clumped and all forms of anticoagulants. (5) Esophagitis determined by endoscopy Is this a current diagnosis for this admission?: Yes (6) Esophageal erosions Is this a current diagnosis for this admission?: Yes (7) Hiatal hernia Is this a current diagnosis for this admission?: Yes (8) A-fib Qualifiers: Atrial fibrillation type: paroxysmal Qualified Code(s): I48.0 - Paroxysmal atrial fibrillation Is this a current diagnosis for this admission?: Yes Plan: Continue sotalol and as needed metoprolol (9) Anticoagulation adequate with anticoagulant therapy Is this a current diagnosis for this admission?: Yes (10) Fecal impaction Is this a current diagnosis for this admission?: Yes (11) Hyperkalemia Is this a current diagnosis for this admission?: Yes (12) Anemia associated with acute blood loss Is this a current diagnosis for this admission?: Yes Plan: Continue to monitor H&H. Transfuse if drops below 8. (13) Diabetes mellitus Qualifiers: Diabetes mellitus type: type 2 Diabetes mellitus complication status: with unspecified complications Diabetes mellitus long-term insulin use: with green marketing analyst use Qualified Code(s): E11.8 - Type 2 diabetes mellitus with unspecified complications; Z79.4 - log sorting supervisor (current) use of insulin Is this a current diagnosis for this admission?: Yes Plan: Continue Lantus and sliding scale insulin. (14) Candidal dermatitis Is this a current diagnosis for this admission?: Yes Plan: Wash wound twice daily with Hibiclens and use nystatin daily - Time Time Spent with patient: 25-34 minutes
[2017-07-07] MEDS: PHENAZOPYRIDINE HCL 100 MG TABLET PO SCH (06:42)
[2017-07-07] MEDS: HYDROCODONE/ACETAMINOPHEN 5-325 MG TABLET PO PRN ×3 (06:43→23:53)
[2017-07-07] MEDS: LANSOPRAZOLE 30 MG TAB.RAP.DR PO SCH ×2 (06:43→17:57)
[2017-07-07] MEDS ORDERED: ONDANSETRON HCL INJ/PF 4 MG/2 ML SDV ONE (07:50)
[2017-07-07] MEDS: CEFTRIAXONE 1 GM/D5W RTU 1 GM/50 ML RTUPB IV SCH (09:08)
[2017-07-07] MEDS: SUCRALFATE SUSP 1 GM/10 ML UDCUP PO SCH ×2 (09:08→17:53)
[2017-07-07] MEDS: SOTALOL HCL 80 MG TABLET PO SCH ×2 (09:09→22:16)
[2017-07-07] MEDS: NYSTATIN CREAM 15 GM TP SCH ×2 (09:09→17:59)
[2017-07-07] MEDS: NYSTATIN TOPICAL POWDER 15 GM TP SCH ×2 (09:09→17:59)
[2017-07-07 09:48] LABS: HEMATOCRIT 27.9 % (36.0-47.0); HEMOGLOBIN 9.5 g/dL (12.0-15.5); HGB HCT DIFFERENCE 0.6; MEAN CORPUSCULAR HEMOGLOBIN 29.4 pg (27.0-33.4); MEAN CORPUSCULAR HGB CONC 33.9 g/dL (32.0-36.0); MEAN CORPUSCULAR VOLUME 87 fl (80-97); RED BLOOD COUNT 3.22 10^6/uL (3.72-5.28); RED CELL DISTRIBUTION WIDTH 16.9 % (11.5-14.0); WHITE BLOOD COUNT 10.8 10^3/uL (4.0-10.5)
[2017-07-07 09:57] LABS: ANION GAP 9 (5-19); BLOOD UREA NITROGEN 9 mg/dL (7-20); CALCIUM 9.8 mg/dL (8.4-10.2); CARBON DIOXIDE 26 mmol/L (22-30); CHLORIDE 104 mmol/L (98-107); CREATININE RESULT 0.86 mg/dL (0.52-1.25); GLUCOSE 135 mg/dL (75-110); POTASSIUM 3.7 mmol/L (3.6-5.0); SODIUM 138.8 mmol/L (137-145)
[2017-07-07 10:25] LABS: BAND NEUTROPHILS % (MANUAL) 4 % (3-5); BASOPHILS % (MANUAL) 1 % (0-2); EOSINOPHILS % (MANUAL) 1 % (0-6); LYMPHOCYTES % (MANUAL) 50 % (13-45); NUCLEATED RED BLOOD CELLS 17 /100 WBC (0); TOTAL CELLS COUNTED 100
[2017-07-07 10:28] LABS: TOXIC GRANULATION SLIGHT
[2017-07-07 10:29] LABS: ANISOCYTOSIS 1+; OVALOCYTES SLIGHT; POIKILOCYTOSIS SLIGHT; POLYCHROMASIA SLIGHT; TARGET CELLS SLIGHT; TEAR DROP CELLS SLIGHT
[2017-07-07] MEDS ORDERED: FENTANYL CITRATE INJ/PF 100 MCG/2 ML AMPUL ONE ×2 (12:52→13:57)
[2017-07-07] MEDS ORDERED: PROPOFOL INJ 200 MG/20 ML VIAL IV ONE (12:53)
[2017-07-07] MEDS ORDERED: MIDAZOLAM 2 MG/2 ML INJ ONE (12:53)
--- NOTE | 2017-07-07 13:38 | Operative Report ---
Operative Report DATE OF SURGERY: 07/07/17 Operative Report: The risks, benefits and alternatives of the procedure including risks of bleeding, perforation requiring surgery are explained to the patient detail and informed consent was obtained. The patient is brought back to the operating room and placed in a left, lateral decubital position. Timeout was called. Propofol medications administered. A rectal examination was done which did not reveal any masses, tears or fissures. An Olympus videoscope was inserted patient's rectum. It is carefully guided all the way to the cecum. The cecum was identified by the usual anatomical landmarks of the ileocecal valve as well as the appendiceal office. Photodocumentation was obtained. The scope was then sequentially pulled back via the rest segments of the colon including the ascending colon, hepatic flexure, transverse colon, splenic flexure, descending colon fun to the rectosigmoid portions of the colon. Retroflexion maneuver was performed. PREOPERATIVE DIAGNOSIS: Possible GI bleeding POSTOPERATIVE DIAGNOSIS: Normal colonoscopy to cecum. Possible lipoma noted at the ileocecal valve status post biopsy. Internal hemorrhoids OPERATION: Colonoscopy with biopsy SURGEON: CHET SAENZ ANESTHESIA: LMAC TISSUE REMOVED OR ALTERED: As noted above COMPLICATIONS: None. ESTIMATED BLOOD LOSS: None. INTRAOPERATIVE FINDINGS: As described above. PROCEDURE: Patient tolerated procedure well. No immediate postprocedure complications are noted. Patient sent back to her room in good condition. We will wait on biopsies. Resume diet Resume activity level Follow-up as outpatient
[2017-07-07] MEDS ORDERED: PROMETHAZINE HCL INJ 25 MG/1 ML VIAL IV PRN (13:47)
[2017-07-07] MEDS ORDERED: DIPHENHYDRAMINE HCL 50 MG/ML VIAL IV PRN (13:47)
[2017-07-07] MEDS ORDERED: FENTANYL CITRATE INJ/PF 100 MCG/2 ML AMPUL IV PRN ×2 (13:47)
[2017-07-07] MEDS ORDERED: LIDOCAINE 2% VISCOUS SOLN 20 ML UDCUP PO PRN (14:30)
[2017-07-07] MEDS ORDERED: MAG HYDROX/AL HYDROX/SIMETH SUSP 30 ML UDCUP PO PRN (14:30)
[2017-07-07] MEDS ORDERED: ONDANSETRON HCL INJ/PF 4 MG/2 ML SDV IV PRN (14:30)
[2017-07-07 14:43] LABS: PATH REVIEW PATHOLOGIST REVIEWED
[2017-07-07] MEDS: SIMETHICONE 80 MG TAB.CHEW PO ONE ×2 (14:46→15:10)
[2017-07-07] MEDS: BENAZEPRIL HCL 10 MG TABLET PO SCH (15:09)
[2017-07-07] MEDS: AMLODIPINE BESYLATE 5 MG TABLET PO SCH (15:10)
--- NOTE | 2017-07-07 16:17 | PDOC PROGRESS REPORT ---
Subjective Progress Note for:: 07/07/17 Subjective:: Patient seen earlier today on morning rounds. Family is present at bedside. Complaints of chest/ left upper quadrant pain. Patient denies shortness of breath, nausea, vomiting, fevers, chills, diarrhea, constipation, headache, new onset weakness. Physical Exam Vital Signs: Temp Pulse Resp BP Pulse Ox 99.0 F 75 18 145/47 H 100 07/07/17 03:11 07/07/17 03:11 07/07/17 03:11 07/07/17 03:11 07/07/17 03:11 Intake & Output 07/06/17 07/07/17 07/08/17 06:59 06:59 06:59 Intake Total 1178 5864 Output Total 700 7500 Balance 478 -1636 Weight 73.9 kg 74.9 kg Exam: General: answers questions appropriately, no acute respiratory distress HEENT: AT/NC, PERRL, EOMI, oropharynx is moist, pink, no scleral icterus, no conjunctival injection Neck: No JVD, trachea midline Chest: Clear to auscultation bilaterally, no wheezes rhonchi or rales CV: RRR, normal S1 and S2, no rub, or gallop; 2/6 sm llsb Abdomen: Soft, mildly tender to deep palpation LUQ, nondistended, active bowel sounds; no rebound, rigidity, or guarding Extremities: No cyanosis, clubbing or edema Neuro: Cranial nerves II through XII are grossly intact without focal deficits; answers questions appropriately Psych: Normal mood and affect Skin: left mastectomy scar well healing without erythema, much improved Results Laboratory Results: 07/06/17 08:23 07/06/17 04:18 07/06/17 08:23 WBC 9.4 RBC 2.91 L Hgb 9.0 L Hct 25.7 L MCV 88 MCH 30.7 MCHC 34.8 RDW 16.4 H Plt Count 46 L Seg Neutrophils % Not Reportable Lymphocytes % Not Reportable Monocytes % Not Reportable Eosinophils % Not Reportable Basophils % Not Reportable Absolute Neutrophils Not Reportable Absolute Lymphocytes Not Reportable Absolute Monocytes Not Reportable Absolute Eosinophils Not Reportable Absolute Basophils Not Reportable Impressions: Acute Abdomen Series 07/03/17 00:33 IMPRESSION: NO RADIOGRAPHIC EVIDENCE FOR ACUTE ABDOMINAL DISEASE. Assessment & Plan - Diagnosis (1) GI bleed Qualifiers: GI bleed type/associated pathology: melena Qualified Code(s): K92.1 - Melena Is this a current diagnosis for this admission?: Yes Plan: Patient underwent upper endoscopy which revealed esophagitis, esophageal erosions, hiatal hernia, gastritis. Biopsies were pending. Plan for lower endoscopy. Hemoglobin stable. Patient is to undergo lower endoscopy today. She will likely be able to be discharged tomorrow after this. Prevacid twice daily and Carafate (2) Sepsis, Gram negative Is this a current diagnosis for this admission?: Yes Plan: Secondary Klebsiella in the urine Rocephin day #4 of therapy (3) Urinary tract infection Qualifiers: Urinary tract infection type: acute cystitis Hematuria presence: without hematuria Qualified Code(s): N30.00 - Acute cystitis without hematuria Is this a current diagnosis for this admission?: Yes Plan: Klebsiella on day #4 of treatment (4) Thrombocytopenia Is this a current diagnosis for this admission?: Yes Plan: Stable Secondary to sepsis. Have also sent antiplatelet antibodies. Hold anticoagulation secondary to thrombocytopenia and acute bleeding Patient's platelets clumped and all forms of anticoagulants. (5) Esophagitis determined by endoscopy Is this a current diagnosis for this admission?: Yes (6) Esophageal erosions Is this a current diagnosis for this admission?: Yes (7) Hiatal hernia Is this a current diagnosis for this admission?: Yes (8) A-fib Qualifiers: Atrial fibrillation type: paroxysmal Qualified Code(s): I48.0 - Paroxysmal atrial fibrillation Is this a current diagnosis for this admission?: Yes Plan: Continue sotalol and as needed metoprolol (9) Anticoagulation adequate with anticoagulant therapy Is this a current diagnosis for this admission?: Yes Plan: Hold anticoagulation secondary to thrombocytopenia and acute bleeding Attempted to discuss this with family who does not seem to understand (10) Fecal impaction Is this a current diagnosis for this admission?: Yes Plan: Improved (11) Hyperkalemia Is this a current diagnosis for this admission?: Yes Plan: Improved secondary to hemolysis (12) Anemia associated with acute blood loss Is this a current diagnosis for this admission?: Yes Plan: Continue to monitor H&H. Transfuse if drops below 8. (13) Diabetes mellitus Qualifiers: Diabetes mellitus type: type 2 Diabetes mellitus complication status: with unspecified complications Diabetes mellitus long term care phlebotomist insulin use: with long term care phlebotomist use Qualified Code(s): E11.8 - Type 2 diabetes mellitus with unspecified complications; Z79.4 - residential (current) use of insulin Is this a current diagnosis for this admission?: Yes Plan: Continue Lantus and sliding scale insulin. (14) Candidal dermatitis Is this a current diagnosis for this admission?: Yes Plan: Wash wound twice daily with Hibiclens and use nystatin daily - Time Time Spent with patient: 25-34 minutes Medications reviewed and adjusted accordingly: Yes Anticipated discharge: Home Within: within 24 hours, within 48 hours
[2017-07-07] MEDS: INSULIN LISPRO 100 UNIT/ML 3 ML VIAL SUBCUT PRN ×2 (17:55→22:16)
[2017-07-07] MEDS: INSULIN GLARGINE,HUM.REC.ANLOG 300 UNIT/3 ML INSULN.PEN SUBCUT SCH (22:16)
[2017-07-08] MEDS: LANSOPRAZOLE 30 MG TAB.RAP.DR PO SCH (05:55)
[2017-07-08] MEDS: NYSTATIN CREAM 15 GM TP SCH (09:19)
[2017-07-08] MEDS: SOTALOL HCL 80 MG TABLET PO SCH (09:20)
[2017-07-08] MEDS: AMLODIPINE BESYLATE 5 MG TABLET PO SCH (09:20)
[2017-07-08] MEDS: SUCRALFATE SUSP 1 GM/10 ML UDCUP PO SCH (09:20)
[2017-07-08] MEDS: CEFTRIAXONE 1 GM/D5W RTU 1 GM/50 ML RTUPB IV SCH (09:20)
[2017-07-08] MEDS: BENAZEPRIL HCL 10 MG TABLET PO SCH (09:30)
[2017-07-08] MEDS: HYDROCODONE/ACETAMINOPHEN 5-325 MG TABLET PO PRN ×2 (09:31→15:33)
[2017-07-08] MEDS: NYSTATIN TOPICAL POWDER 15 GM TP SCH (09:40)
[2017-07-08 11:42] VITALS: BP 135/44
--- NOTE | 2017-07-08 13:18 | PDOC PROGRESS REPORT ---
Subjective Progress Note for:: 07/08/17 Subjective:: patient tolerated her procedure well no significant overnight events patient is able to tolerate oral intake had Propofol sedation for her colonoscopy yesterday ? possible lipomatous lesion at the IC valve otherwise no bleeding is noted also had EGD last week biopsies are negative for H.pylori should be able to be discharged unless other clinical issues Physical Exam Vital Signs: Temp Pulse Resp BP Pulse Ox 98.6 F 69 16 135/44 H 91 L 07/08/17 11:17 07/08/17 11:17 07/08/17 11:17 07/08/17 11:17 07/08/17 11:17 Intake & Output 07/07/17 07/08/17 07/09/17 06:59 06:59 06:59 Intake Total 5864 1691 717 Output Total 8186 2125 200 Balance -1636 -434 517 Weight 74.9 kg 74.6 kg General appearance: PRESENT: no acute distress, well-developed, well-nourished Head exam: PRESENT: atraumatic, normocephalic Eye exam: PRESENT: EOMI, PERRLA. ABSENT: nystagmus, periorbital swelling, scleral icterus Mouth exam: PRESENT: moist, neck supple Throat exam: ABSENT: tonsillar exudate, tonsillogmegaly Neck exam: ABSENT: meningismus, tenderness, thyromegaly Respiratory exam: PRESENT: symmetrical, unlabored. ABSENT: tachypnea, wheezes Cardiovascular exam: PRESENT: RRR, +S1, +S2 GI/Abdominal exam: PRESENT: soft. ABSENT: rebound, rigid, tenderness Extremities exam: ABSENT: joint swelling Neurological exam: PRESENT: alert, oriented to time, CN II-XII grossly intact Skin exam: PRESENT: normal color. ABSENT: mottled, pallor, petechiae, urticaria , vesicles Results Laboratory Results: 07/07/17 09:20 07/07/17 09:20 07/06/17 00:20 Clean Catch Midstream Urine Culture - Final NO GROWTH 2 DAYS 07/04/17 12:15 Breast - Abscess Gram Stain - Final 07/04/17 12:15 Breast - Abscess Wound Culture - Final Staphylococcus Lugdunensis C.albicans/C.dubliniensis No Anaerobic Organisms Impressions: Acute Abdomen Series 07/03/17 00:33 IMPRESSION: NO RADIOGRAPHIC EVIDENCE FOR ACUTE ABDOMINAL DISEASE. Assessment & Plan - Diagnosis (1) Fecal impaction Is this a current diagnosis for this admission?: Yes Plan: resolved, can resumes normal diet daily Miralax and stool softeners as an outpatient (2) GI bleed Qualifiers: GI bleed type/associated pathology: melena Qualified Code(s): K92.1 - Melena Is this a current diagnosis for this admission?: Yes Plan: resolved as well gastritis noted, biopsies are negative will follow as outpatient - Time Time Spent with patient: 15-24 minutes
[2017-07-08 14:53] LABS: PATH REVIEW PATHOLOGIST REVIEWED
--- NOTE | 2017-07-08 16:35 | PDOC DISCHARGE SUMMARY ---
General - Admit/Disc Date/PCP Admission Date/Primary Care Provider: 07/03/17 04:47 ANISH DEVRIES MD Discharge Date: 07/08/17 - Discharge Diagnosis (1) Sepsis, Gram negative Is this a current diagnosis for this admission?: Yes Summary: Patient was diagnosed with sepsis secondary to urinary tract infection with Klebsiella. She was treated for this underlying condition and this has since resolved. (2) Anemia associated with acute blood loss Is this a current diagnosis for this admission?: Yes Summary: Hemoglobin is stable at 9. Likely this is secondary from the patient's underlying esophageal erosions and esophagitis. Her family members who are with her in the room insists that the patient never had any vomiting or any evidence of blood in her emesis. They said that she was bleeding from her vagina. Apparently the ER physician checked he did not find any vaginal bleeding as per their report. At any rate the patient is currently stable she may follow with her primary care physician for repeat CBC as needed. (3) Diabetes mellitus Is this a current diagnosis for this admission?: Yes Summary: Continue home medications. The patient was hyperglycemic here. This was resolved with sliding scale insulin. (4) Esophagitis determined by endoscopy Is this a current diagnosis for this admission?: Yes Summary: Patient is started on Carafate as well as Protonix twice daily. She will need to follow-up with outpatient gastroenterology for follow-up of her biopsies. (5) Fecal impaction Is this a current diagnosis for this admission?: Yes Summary: Resolved. MiraLAX daily is recommended. They may go up to twice daily as needed. Follow with PCP. (6) Thrombocytopenia Is this a current diagnosis for this admission?: Yes Summary: This is felt to be secondary to underlying sepsis.The patient will need to have repeat CBC in her PCPs office for monitoring of her platelets. They are currently 46. (7) Urinary tract infection Is this a current diagnosis for this admission?: Yes Summary: Klebsiella UTI. Treated with Rocephin. The patient is given Augmentin as an outpatient. She is given another 7 days worth not only to cover for this but also for her abscess. I will defer to her PCP if she would like to perform a urinalysis as test for cure. (8) A-fib Is this a current diagnosis for this admission?: Yes Summary: Continue home doses of sotalol. (9) Chest pain Summary: The patient did not complain of chest pain at the bedside. However, her family members did witness some. At this point her chest pain can be best explained by esophageal erosions and esophagitis as well as her right mastectomy abscess. Her family respectfully declined the recommendations of Dr. Ventura and officially declined to see him altogether. Dr. Jaimes was not available for consultation here in the hospital. They may follow-up with him as an outpatient. (10) Anticoagulation adequate with anticoagulant therapy Is this a current diagnosis for this admission?: Yes Summary: Patient's Xarelto was held secondary to GI bleed and acute anemia. Recommend she continue to hold this for 6-8 weeks. Follow-up as an outpatient with gastroenterology and with PCP to determine when it will be safe to restart this. Risks versus benefits of being on anticoagulation for stroke prevention vs risk of bleeding from ulcers were discussed with the patient. (11) Candidal dermatitis Is this a current diagnosis for this admission?: Yes - Additional Information Resuscitation Status: Do Not Resuscitate Discharge Diet: Diabetic Discharge Activity: Activity As Tolerated, Balance Activity w/Rest Home Medications: Amlodipine Besylate [Norvasc 5 mg Tablet] 5 mg PO DAILY 07/03/17 Benazepril HCl [Lotensin 10 mg Tablet] 10 mg PO DAILY 07/03/17 Cholecalciferol (Vitamin D3) [Vitamin D3 400 Unit Tablet] 400 unit PO DAILY Empagliflozin [Jardiance] 10 mg PO DAILY 07/03/17 Hydrocodone/Acetaminophen [[place] 5-325 mg Tablet] 1 tab PO Q12HP PRN 07/03/17 Insulin Glargine,Hum.rec.anlog [Lantus Solostar] 25 unit SQ QHS 07/03/17 Linagliptin/Metformin HCl [Jentadueto 2.5 mg-500 mg Tab] 1 each PO Q12 07/03/17 Nitroglycerin [Nitrostat 0.4 mg (1/150 Gr) Tabs 25/Bottle] 1 tab SL Q5MP PRN Ondansetron [Zofran Odt 4 mg Tablet] 4 mg PO Q4HP PRN 07/03/17 Pravastatin Sodium [Pravachol] 40 mg PO QHS 07/03/17 Sotalol HCl [Sotalol] 80 mg PO Q12 07/03/17 Amox Tr/Potassium Clavulanate [Augmentin 875-125 mg Tablet] 1 tab PO BID #14 tablet 07/08/17 Nystatin [Mycostatin Cream 15 gm] 1 applic TP BID #1 tube 07/08/17 Pantoprazole Sodium [Protonix] 40 mg PO BID #60 tablet. 07/08/17 Sucralfate [Carafate Susp 1 gm/10 ml Udcup] 1 gm PO BID #100 udc 07/08/17 History of Present Illness History of Present Illness: JOSUÉ ALVARADO is a 82 year old female admitted for GI bleed and sepsis. Please see the below admitting providers H&P for details of admission. 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 fib on Xarelto and breast cancer status post mastectomy 2 weeks ago. Patient is accompanied by her daughter who is her caregiver and able to provide history. Patient has been her usual state of health until approximately 5 days ago having exceptional constipation secondary to narcotic 8 hours ago had an episode of abdominal pain feculent emesis followed by coffee-ground emesis. She is brought to the emergency room for evaluation and found to have epigastric pain abdominal distentiot, left lower quadrant pain and heme positive stool. She started on a bolus of Protonix and referred to the hospitalist for admission. Hospital Course Hospital Course: Patient was admitted to the hospital For Gi Bleed and Sepsis. Her complaints of chest pain were addressed. Her family members were concerned that her chest pain could be cardiac. Therefore, cardiology consult was placed. Dr. Ventura went to see the patient but the patient's family respectfully declined to see him and wanted to see Dr. Jaimes. In addition to this, they rejected his recommendation for stress test. Unfortunately Dr. Jaimes was not able to come in on the day of discharge. It was explained extensively to the patient that her chest pain is likely due to her esophageal ulcer and associated esophagitis along with a new right mastectomy and associated abscess. The patient did undergo upper and lower endoscopy for gi bleed. Possible lipoma was found on lower endoscopy and esophageal ulcer/esophagitis was found on upper endoscopy. The patient also had blood cultures drawn while here for Suspicion of sepsis. This was negative. In addition to this the patient was treated for urinary tract infection. She grew out Klebsiella. She also grew out Staphylococcus and Jennifer in her wound. She was treated with Rocephin IV and seemed to respond well to this. Again, blood cultures remain negative after 5 days. All of this was explained to her family. I recommended that the patient follow-up with Dr. Jaimes at discharge if they still have concerns from a cardiac perspective; but with her underlying history of esophageal erosions and esophagitis, I feel that we have a viable explanation for her chest discomfort. Not to mention, the patient has a fresh abscess of her right mastectomy site. the patient was ultimately diagnosed with sepsis secondary to gram negative UTI with Klebsiella. In addition to this it was noted that her platelet count also dropped. This is felt to be secondary to sepsis. The patient's anticoagulation was held secondary to coffee-ground emesis (which the patient's family denies) and discovery of esophageal erosions and esophagitis. She will need to re-discuss resumption of this with her primary care physician after. A 6-8 weeks. She should also follow-up as an outpatient with gastroenterology - likely for repeat endoscopy and biopsy results. Patient was given a prescription for Augmentin to cover for her mastectomy site abscess as well as urinary tract infection. In terms of her constipation and fecal impaction I recommended MiraLAX starting daily. This can be increased to twice a day as needed. Physical Exam Vital Signs: Temp Pulse Resp BP Pulse Ox 98.6 F 75 16 135/44 H 91 L 07/08/17 15:44 07/08/17 15:44 07/08/17 15:44 07/08/17 15:44 07/08/17 15:44 Intake & Output 07/07/17 07/08/17 07/09/17 06:59 06:59 06:59 Intake Total 8286 4846 713 Output Total 5446 9225 200 Balance -4766 -434 517 Weight 74.9 kg 74.6 kg GENERAL: This is a well-developed well-nourished appearing overweight white female resting in bed currently in no acute distress. HEART: [Regular rate and rhythm. 2/6 GRIS. No rubs or gallops.] LUNGS: [Clear to auscultation bilaterally with equal rise and fall of the chest. ] ABDOMEN: [Soft, nontender, nondistended with normoactive bowel sounds] EXTREMETIES: [No clubbing, cyanosis or edema. 2+ peripheral pulses bilaterally. ] NEURO: [Awake, alert. Speech is fluent. difficulty with vision however.] Results Laboratory Results: 07/07/17 09:20 07/07/17 09:20 07/03/17 14:01 Blood Blood Culture - Final NO GROWTH IN 5 DAYS 07/03/17 13:09 Blood Blood Culture - Final NO GROWTH IN 5 DAYS 07/06/17 00:20 Clean Catch Midstream Urine Culture - Final NO GROWTH 2 DAYS 07/04/17 12:15 Breast - Abscess Gram Stain - Final 07/04/17 12:15 Breast - Abscess Wound Culture - Final Staphylococcus Lugdunensis C.albicans/C.dubliniensis No Anaerobic Organisms Impressions: Acute Abdomen Series 07/03/17 00:33 IMPRESSION: NO RADIOGRAPHIC EVIDENCE FOR ACUTE ABDOMINAL DISEASE. Qualifiers PATEINT BEING DISCHARGED WITH ANY OF THE FOLLOWING DIAGNOSIS?: No Plan Time Spent: Greater than 30 Minutes
== END 2017-07-08 16:27 | disposition home or self-care (01) | DRG 871 ==
LOC: ER 21:13 → EH 07-03 04:47 → OBSVTOIN 07-03 04:47 → EH 07-03 04:55 → UNDOADMOB 07-03 04:55 → 3W 07-03 07:25
PROVIDERS: ADMIT Internal Medicine; ATTEND Internal Medicine
PROC: 0DB68ZX Excision of Stomach, Via Natural or Artificial Opening Endoscopic, Diagnostic (ICD-10-PCS; 2017-07-04)
PROC: 0DBC8ZX Excision of Ileocecal Valve, Via Natural or Artificial Opening Endoscopic, Diagnostic (ICD-10-PCS; principal; 2017-07-07 12:30)
DX: A41.50 Gram-negative sepsis, unspecified (principal); K22.11 Ulcer of esophagus with bleeding; N30.00 Acute cystitis without hematuria; D62 Acute posthemorrhagic anemia; B96.1 Klebsiella pneumoniae [K. pneumoniae] as the cause of diseases classified elsewhere; E11.9 Type 2 diabetes mellitus without complications; K56.41 Fecal impaction; D69.6 Thrombocytopenia, unspecified; B37.2 Candidiasis of skin and nail; I25.10 Atherosclerotic heart disease of native coronary artery without angina pectoris; E87.5 Hyperkalemia; K64.8 Other hemorrhoids; I48.0 Paroxysmal atrial fibrillation; K44.9 Diaphragmatic hernia without obstruction or gangrene; L30.8 Other specified dermatitis; E78.5 Hyperlipidemia, unspecified; I10 Essential (primary) hypertension; I69.398 Other sequelae of cerebral infarction; H54.0 Blindness, both eyes; M19.90 Unspecified osteoarthritis, unspecified site; Z79.01 Long term (current) use of anticoagulants; Z79.899 Other long term (current) drug therapy; Z79.4 Long term (current) use of insulin; Z85.3 Personal history of malignant neoplasm of breast; Z90.10 Acquired absence of unspecified breast and nipple; Z88.8 Allergy status to other drugs, medicaments and biological substances
CPT/HCPCS: 36415; 43239; 45380; 740; 74022; 80048; 80053; 810; 81001; 82272; 82962; 83690; 83735; 84100; 85025; 85027; 85610; 87040; 87070; 87075; 87086; 87088; 87186; 87205; 88305; 88341; 88342; 93005; 93010; 96365; 99285; J0696; J1815; J1885; J2250; J2405; J2543; J2704; J3010; J3430; J3490; J7030; S0119; S0164

== ENCOUNTER 2017-07-24 12:02 | Day surgery (SDC) | payer MEDICARE ==
[2017-07-24] MEDS ORDERED: DIPHENHYDRAMINE HCL 50 MG/ML VIAL ONE (13:02)
[2017-07-24] MEDS ORDERED: ONDANSETRON HCL INJ/PF 4 MG/2 ML SDV ONE (13:02)
[2017-07-24] MEDS ORDERED: FENTANYL CITRATE INJ/PF 100 MCG/2 ML AMPUL ONE (13:03)
[2017-07-24] MEDS ORDERED: MIDAZOLAM 2 MG/2 ML INJ ONE (13:03)
[2017-07-24] MEDS ORDERED: NALOXONE HCL INJ/PF 0.4 MG/1 ML SDV ONE (13:03)
[2017-07-24] MEDS ORDERED: GLUCAGON,HUMAN RECOMB 1 MG INJ ONE (13:04)
[2017-07-24] MEDS ORDERED: FLUMAZENIL INJ 0.5 MG/5 ML VIAL ONE (13:04)
[2017-07-24] MEDS ORDERED: EPINEPHRINE INJ 1 MG/10 ML DISP.SYRIN ONE (13:04)
[2017-07-24 14:38] VITALS: BP 140/52
--- NOTE | 2017-07-24 15:17 | Operative Report ---
Operative Report DATE OF SURGERY: 07/24/17 Operative Report: The risks benefits and alternatives of the procedure explained to the patient in detail and informed consent is obtained.A GIF Olympus video scope was inserted into the patient's mouth and hypopharynx ,the esophagus is identified intubated and insufflated, the scope was then advanced through the esophagus stomach and duodenum, retroflexion maneuver is done, the esophagus stomach and first and second portions of the duodenum examined PREOPERATIVE DIAGNOSIS: Nausea vomiting POSTOPERATIVE DIAGNOSIS: Gastritis status post biopsy rule out Helicobacter pylori. No bleeding lesion noted OPERATION: EGD with biopsy SURGEON: CHET SAENZ ANESTHESIA: Moderate Sedation - 2 mg of Versed conscious sedation monitoring time 30 minutes. TISSUE REMOVED OR ALTERED: Gastric mucosal specimen obtained to rule out Helicobacter pylori COMPLICATIONS: None. ESTIMATED BLOOD LOSS: None. INTRAOPERATIVE FINDINGS: Gastritis status post biopsy, normal esophagus, no ulcers noted PROCEDURE: Patient tolerated procedure well. No immediate postprocedure complications are noted. Patient discharged in good condition. Discharge date 07/24/2017. Discharge diet: Regular. Discharge activity: Regular. 2-3 week follow-up to discuss findings. Patient is instructed to call the office or proceed to the emergency room should there be any further problems or questions. We will await pathology.
== END 2017-07-24 14:44 | disposition home or self-care (01) ==
LOC: END 12:02
PROVIDERS: ATTEND Internal Medicine Gastroenterology
PROC: 0DB68ZX Excision of Stomach, Via Natural or Artificial Opening Endoscopic, Diagnostic (ICD-10-PCS; principal; 2017-07-24 12:30)
DX: K29.50 Unspecified chronic gastritis without bleeding (principal); D50.9 Iron deficiency anemia, unspecified; E78.00 Pure hypercholesterolemia, unspecified; E11.9 Type 2 diabetes mellitus without complications; Z86.73 Personal history of transient ischemic attack (TIA), and cerebral infarction without residual deficits; Z79.4 Long term (current) use of insulin
CPT/HCPCS: 43239; 82962; 88342 ×2; 88305 ×2; J2250; J0171; J1200; J1610; J2310; J2405; J3010; J3490

== ENCOUNTER 2017-07-30 12:02 | Emergency (ER) | payer MEDICARE ==
--- NOTE | 2017-07-30 12:44 | ER Document Report ---
ED Medical Screen (RME) - General Chief Complaint: Abnormal Lab Results Stated Complaint: ABNORMAL LABS Time Seen by Provider: 07/30/17 12:42 Notes: Pt sent from Dr. De La Torre's office for hgb 7.5. Was 8.6 two weeks ago. Family denies any known history of blood in the stool. Patient has a very complicated medical history. This summer she was diagnosed with breast cancer and had a mastectomy. She has not yet had chemo or radiation. She does have a DNR. Patient also has diabetes. Patient did recently have 2 upper and one lower endoscopy. Apparently these were done for upper abdominal pain. Findings of those were essentially negative per family. She also recently had a gallbladder ultrasound that was unremarkable. TRAVEL OUTSIDE OF THE [place] IN LAST 30 DAYS: No - Related Data Allergies/Adverse Reactions: cetirizine HCl [From Zyrtec] Allergy (Severe, Verified 07/30/17 12:09) LIP SWELLING valdecoxib [From Bextra] Allergy (Intermediate, Verified 07/30/17 12:09) LIP SWELLING tramadol Allergy (Verified 07/30/17 12:09) VOMITING Past Medical History - Past Medical History Cardiac Medical History: Reports: Hx Atrial Fibrillation, Hx Hypercholesterolemia, Hx Hypertension Denies: Hx Coronary Artery Disease, Hx Heart Attack Pulmonary Medical History: Denies: Hx Asthma, Hx Bronchitis, Hx COPD, Hx Pneumonia, Hx Tuberculosis Neurological Medical History: 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 Denies: Hx Seizures Endocrine Medical History: Reports: Hx Diabetes Mellitus Type 2 Renal/ Medical History: Denies: Hx Peritoneal Dialysis Malignancy Medical History: Reports: Hx Breast Cancer Musculoskeltal Medical History: Reports Hx Arthritis Past Surgical History: Denies: Hx Appendectomy, Hx Bowel Surgery, Hx Section, Hx Cholecystectomy, Hx Coronary Artery Bypass Graft, Hx Gastric Bypass Surgery, Hx Herniorrhaphy, Hx Hysterectomy, Hx Mastectomy, Hx Pacemaker, Hx Tonsillectomy, Hx Tubal Ligation - Immunizations Hx Diphtheria, Pertussis, Tetanus Vaccination: Yes - UNSURE WHEN Physical Exam - Vital signs Vitals: Temp Pulse Resp BP Pulse Ox 97.7 F 77 16 123/50 L 96 07/30/17 12:06 07/30/17 12:06 07/30/17 12:06 07/30/17 12:06 07/30/17 12:06 Course - Vital Signs Vital signs: Temp Pulse Resp BP Pulse Ox 97.7 F 77 16 123/50 L 96 07/30/17 12:06 07/30/17 12:06 07/30/17 12:06 07/30/17 12:06 07/30/17 12:06
[2017-07-30 15:05] LABS: HEMATOCRIT 23.3 % (36.0-47.0); HGB HCT DIFFERENCE -0.2; MEAN CORPUSCULAR HEMOGLOBIN 30.3 pg (27.0-33.4); MEAN CORPUSCULAR HGB CONC 33.3 g/dL (32.0-36.0); RED BLOOD COUNT 2.56 10^6/uL (3.72-5.28); RED CELL DISTRIBUTION WIDTH 22.3 % (11.5-14.0)
[2017-07-30 15:16] LABS: HEMOGLOBIN 7.7 g/dL (12.0-15.5)
[2017-07-30] MEDS ORDERED: NORMAL SALINE 250 ML IV PRN ×2 (15:40)
[2017-07-30 15:44] LABS: BAND NEUTROPHILS % (MANUAL) 8 % (3-5); BASOPHILS % (MANUAL) 0 % (0-2); EOSINOPHILS % (MANUAL) 2 % (0-6); LYMPHOCYTES % (MANUAL) 42 % (13-45); NUCLEATED RED BLOOD CELLS 6 /100 WBC (0); TOTAL CELLS COUNTED 100
[2017-07-30 15:46] LABS: ANISOCYTOSIS 3+; SMUDGE CELLS PRESENT; TOXIC VACUOLATION PRESENT
[2017-07-30 15:52] LABS: TEAR DROP CELLS SLIGHT
[2017-07-30 15:53] LABS: POIKILOCYTOSIS 1+
[2017-07-30 16:00] LABS: ALANINE AMINOTRANSFERASE 30 U/L (9-52); ALBUMIN 3.7 g/dL (3.5-5.0); ALKALINE PHOSPHATASE 171 U/L (38-126); ANION GAP 14 (5-19); ASPARTATE AMINO TRANSFERASE 103 U/L (14-36); BILIRUBIN,DIRECT 0.5 mg/dL (0.0-0.4); BILIRUBIN,TOTAL 0.8 mg/dL (0.2-1.3); BLOOD UREA NITROGEN 18 mg/dL (7-20); CALCIUM 9.3 mg/dL (8.4-10.2); CARBON DIOXIDE 20 mmol/L (22-30); CHLORIDE 101 mmol/L (98-107); CREATININE RESULT 0.97 mg/dL (0.52-1.25); GLUCOSE 119 mg/dL (75-110); POTASSIUM 4.6 mmol/L (3.6-5.0); SODIUM 134.9 mmol/L (137-145); TOTAL PROTEIN 6.9 g/dL (6.3-8.2)
[2017-07-30 16:01] LABS: PLATELET ESTIMATE 56 10^3/uL (150-450)
[2017-07-30 16:12] LABS: MEAN CORPUSCULAR VOLUME 91 fl (80-97)
--- NOTE | 2017-07-30 17:36 | ER Document Report ---
ED General - General Chief Complaint: Abnormal Lab Results Stated Complaint: ABNORMAL LABS Time Seen by Provider: 07/30/17 12:42 TRAVEL OUTSIDE OF THE [place] IN LAST 30 DAYS: No - HPI Patient complains to provider of: Low H&H Notes: Patient was sent into the ER today by her primary care provider due to outpatient laboratory showing hemoglobin of 7.5. Patient has a history of breast cancer underwent a mastectomy. Patient currently is on chemotherapy patient was recently admitted for anemia and possible GI bleed however upper and lower GI only showed some erosion of the esophagus. Patient states dark stools however this started at the patient started iron therapy. Patient denies fevers chills nausea vomiting abdominal pain. States has not followed up with oncology due to recent hospitalization. - Related Data Allergies/Adverse Reactions: cetirizine HCl [From Zyrtec] Allergy (Severe, Verified 07/30/17 12:09) LIP SWELLING valdecoxib [From Bextra] Allergy (Intermediate, Verified 07/30/17 12:09) LIP SWELLING tramadol Allergy (Verified 07/30/17 12:09) VOMITING Past Medical History - Social History Smoking Status: Never Smoker Chew tobacco use (# tins/day): No Frequency of alcohol use: None Drug Abuse: None Family History: Reviewed & Not Pertinent - Past Medical History Cardiac Medical History: Reports: Hx Atrial Fibrillation, Hx Hypercholesterolemia, Hx Hypertension Denies: Hx Coronary Artery Disease, Hx Heart Attack Pulmonary Medical History: Denies: Hx Asthma, Hx Bronchitis, Hx COPD, Hx Pneumonia, Hx Tuberculosis Neurological Medical History: 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 Denies: Hx Seizures Endocrine Medical History: Reports: Hx Diabetes Mellitus Type 2 Renal/ Medical History: Denies: Hx Peritoneal Dialysis Malignancy Medical History: Reports: Hx Breast Cancer Musculoskeltal Medical History: Reports Hx Arthritis Past Surgical History: Reports: Hx Breast Surgery - Bilat Masectomy. Denies: Hx Appendectomy, Hx Bowel Surgery, Hx Section, Hx Cholecystectomy, Hx Coronary Artery Bypass Graft, Hx Gastric Bypass Surgery, Hx Herniorrhaphy, Hx Hysterectomy, Hx Mastectomy, Hx Pacemaker, Hx Tonsillectomy, Hx Tubal Ligation - Immunizations Hx Diphtheria, Pertussis, Tetanus Vaccination: Yes - UNSURE WHEN Hx Pneumococcal Vaccination: 10/20/14 Review of Systems - Review of Systems Constitutional: Other - Laboratory values abnormality EENT: No symptoms reported Cardiovascular: No symptoms reported Respiratory: No symptoms reported Gastrointestinal: No symptoms reported Genitourinary: No symptoms reported Female Genitourinary: No symptoms reported Musculoskeletal: No symptoms reported Skin: No symptoms reported Hematologic/Lymphatic: No symptoms reported Neurological/Psychological: No symptoms reported Physical Exam - Vital signs Vitals: Temp Pulse Resp BP Pulse Ox 97.7 F 77 16 123/50 L 96 07/30/17 12:06 07/30/17 12:06 07/30/17 12:06 07/30/17 12:06 07/30/17 12:06 Interpretation: Normal - General General appearance: Appears well, Alert - HEENT Head: Normocephalic, Atraumatic Eyes: Normal Pupils: PERRL - Respiratory Respiratory status: No respiratory distress Chest status: Nontender Breath sounds: Normal Chest palpation: Normal - Cardiovascular Rhythm: Regular Heart sounds: Normal auscultation Murmur: No - Abdominal Inspection: Normal Distension: No distension Bowel sounds: Normal Tenderness: Nontender Organomegaly: No organomegaly - Rectal Notes: Dark stool a bedside Hemoccult was performed showing no signs of occult blood - Back Back: Normal, Nontender - Extremities General upper extremity: Normal inspection, Nontender, Normal color, Normal ROM , Normal temperature General lower extremity: Normal inspection, Nontender, Normal color, Normal ROM , Normal temperature, Normal weight bearing. No: Bj's sign - Neurological Neuro grossly intact: Yes Cognition: Normal Orientation: AAOx4 [place] Coma Scale Eye Opening: Spontaneous [place] Coma Scale Verbal: Oriented [place] Coma Scale Motor: Obeys Commands [place] Coma Scale Total: 15 Speech: Normal Motor strength normal: LUE, RUE, LLE, RLE Sensory: Normal - Psychological Associated symptoms: Normal affect, Normal mood - Skin Skin Temperature: Warm Skin Moisture: Dry Skin Color: Normal Course - Re-evaluation Re-evalutation: 07/30/17 17:34 Laboratory values showed a hemoglobin of 7.7 patient also has thrombocytopenia. Discussed with her oncologist Dr. Romero at this time agrees with blood transfusion. Requesting the patient follow-up in his office. Patient will have a unit given otherwise no other significant criteria seen plan is to transfuse 1 unit of blood and discharge patient home. - Vital Signs Vital signs: Temp Pulse Resp BP Pulse Ox 97.7 F 77 18 138/58 H 98 07/30/17 18:09 07/30/17 12:06 07/30/17 18:09 07/30/17 18:09 07/30/17 18:09 - Laboratory Result Diagrams: 07/30/17 14:50 07/30/17 14:50 Laboratory results interpreted by me: 07/30/17 07/30/17 07/30/17 14:50 14:50 14:50 WBC 15.0 H RBC 2.56 L Hgb 7.7 L Hct 23.3 L RDW 22.3 H Plt Count 62 L Band Neutrophils % 8 H Monocytes % (Manual) 0 L Abs Neuts (Manual) 8.4 H Abs Lymphs (Manual) 6.3 H Abs Monocytes (Manual) 0.0 L Platelet Estimate 56 L Sodium 134.9 L Carbon Dioxide 20 L Est GFR (Non-Af Amer) 55 L Glucose 119 H Direct Bilirubin 0.5 H AST 103 H Alkaline Phosphatase 171 H Urine Protein Urine Glucose (UA) Urine Ketones Urine Blood Ur Leukocyte Esterase Crossmatch See Detail 07/30/17 17:24 WBC RBC Hgb Hct RDW Plt Count Band Neutrophils % Monocytes % (Manual) Abs Neuts (Manual) Abs Lymphs (Manual) Abs Monocytes (Manual) Platelet Estimate Sodium Carbon Dioxide Est GFR (Non-Af Amer) Glucose Direct Bilirubin AST Alkaline Phosphatase Urine Protein 100 H Urine Glucose (UA) >=500 H Urine Ketones TRACE H Urine Blood SMALL H Ur Leukocyte Esterase LARGE H Crossmatch Procedures - Additional Procedures IV insertion Notes: 07/30/17 19:03 Ultrasound IV was placed without difficulty. Discharge - Discharge Clinical Impression: Anemia requiring transfusions, Thrombocytopenia, Urinary tract infection Condition: Good Disposition: HOME, SELF-CARE Instructions: Anemia ([facility]), Cephalexin ([facility]), Urinary Tract Infection ([facility]) Additional Instructions: Follow-up with your primary care physician. Return to ER symptoms worsen. Take antibiotics as prescribed Prescriptions: Cephalexin Monohydrate [Keflex 500 mg Capsule] 500 mg PO Q6H 10 Days capsule Referrals: ANISH DEVRIES MD [Primary Care Provider] - Follow up as needed
[2017-07-30 17:48] LABS: APPEARANCE,URINE CLOUDY; BILIRUBIN,URINE NEGATIVE (NEGATIVE); GLUCOSE, URINE >=500 mg/dL (NEGATIVE); KETONES,URINE TRACE mg/dL (NEGATIVE); LEUKOCYTE ESTERASE,URINE LARGE (NEGATIVE); NITRITE,URINE NEGATIVE (NEGATIVE); PROTEIN,URINE 100 mg/dL (NEGATIVE); URINE SPECIFIC GRAVITY 1.013; UROBILINOGEN,URINE NEGATIVE mg/dL (<2.0)
[2017-07-30] MEDS ORDERED: CEFTRIAXONE 1 GM/D5W RTU 1 GM/50 ML RTUPB IV ONE ×2 (18:04→21:55)
[2017-07-30 23:11] VITALS: BP 150/58
== END 2017-07-30 23:00 | disposition home or self-care (01) ==
LOC: ER 12:02
DX: N39.0 Urinary tract infection, site not specified (principal); D69.6 Thrombocytopenia, unspecified; D64.9 Anemia, unspecified; Z85.3 Personal history of malignant neoplasm of breast
CPT/HCPCS: 99283; 96365; 86900; 86901; 36415; 87086; 36430; 86850; 85025; 82272; 87088; 80053; 81001; 87186; 86920; P9016; J0696

== ENCOUNTER → 2017-08-07 | Outpatient (CLI) | payer MEDICARE ==
--- NOTE | 2017-08-07 19:09 | RADIOLOGY REPORT (SQ) ---
EXAM DESCRIPTION: CT ABD/PELVIS WITH IV ORAL COMPLETED DATE/TIME: 08/07/2017 6:56 pm REASON FOR STUDY: ABDOMINAL DISTENTION/CONSTIPATION/ANEMIA R14.0 ABDOMINAL DISTENSION (GASEOUS) K59 .00 CONSTIPATION, UNSPECIFIED D64.9 ANEMIA, UNSPECIFIED COMPARISON: 03/23/2012. TECHNIQUE: CT scan of the abdomen and pelvis performed with intravenous and oral contrast using adwoa sandra scanning technique with dynamic intravenous contrast injection. Images reviewed with lung, soft t issue, and bone windows. Reconstructed coronal and sagittal MPR images reviewed. Delayed images for e valuation of the urinary system also acquired. All images stored on PACS. All CT scanners at this facility use dose modulation, iterative reconstruction, and/or weight based d osing when appropriate to reduce radiation dose to as low as reasonably achievable (ALARA). [facility]: Dose Right [facility]: CareDose [facility]: Dose Right [facility]: Teradose 4D [facility]: Vet [employer] CONTRAST TYPE AND DOSE: contrast/concentration: Isovue 370.00 mg/ml; Total Contrast Delivered: 76.0 ml; Total Saline Delivered: 67.0 ml RENAL FUNCTION: BUN 18 creatinine 0.97. RADIATION DOSE: Up-to-date CT equipment and radiation dose reduction techniques were employed. CTDIv ol: 15.0 - 18.4 mGy. DLP: 1798 mGy-cm. . LIMITATIONS: None. FINDINGS: LOWER CHEST: Small pleural effusions, right greater than left, with basilar atelectasis. LIVER: Normal size. No masses. No dilated ducts. SPLEEN: Normal size. No focal lesions. PANCREAS: No masses. No significant calcifications. No adjacent inflammation or peripancreatic fluid collections. Pancreatic duct not dilated. GALLBLADDER: No identified stones by CT criteria. No inflammatory changes to suggest cholecystitis. ADRENAL GLANDS: No significant masses or asymmetry. RIGHT KIDNEY AND URETER: Small cortical cyst. No solid masses. No significant calcifications. No hydronephrosis or hydroureter. LEFT KIDNEY AND URETER: No solid masses. No significant calcifications. No hydronephrosis or hydr oureter. AORTA AND VESSELS: No aneurysm. No dissection. Renal arteries, SMA, celiac without stenosis. RETROPERITONEUM: No retroperitoneal adenopathy, hemorrhage or masses. BOWEL AND PERITONEAL CAVITY: No obstruction. No visualized masses. No free fluid. No inflammatory ch anges or thickening of bowel wall. APPENDIX: Not visualized. PELVIS: No significant masses. Normal bladder. No free fluid. ABDOMINAL WALL: No masses. No hernias. BONES: Diffuse sclerotic densities throughout the visualized skeleton. OTHER: Right mastectomy changes with postoperative fluid collection. IMPRESSION: 1. DIFFUSE SCLEROTIC DENSITIES THROUGHOUT THE VISUALIZED SKELETON CONSISTENT WITH BONY METASTASES. 2. SMALL CORTICAL CYST IN THE RIGHT KIDNEY. 3. SMALL PLEURAL EFFUSIONS, RIGHT GREATER THAN LEFT, WITH BASILAR ATELECTASIS. 4. RECENT RIGHT MASTECTOMY WITH POSTOPERATIVE SEROMA. 5. NO OTHER ACUTE OR SIGNIFICANT FINDINGS. TECHNICAL DOCUMENTATION: JOB ID: [id number] Quality ID # [id number]: Final reports with documentation of one or more dose reduction techniques (e.g., Au tomated exposure control, adjustment of the mA and/or kV according to patient size, use of iterative reconstruction technique) 2010 [employer]- All Rights Reserved
== END ==
LOC: RAD 15:23
PROVIDERS: ATTEND Surgery
DX: R14.0 Abdominal distension (gaseous) (principal); K59.00 Constipation, unspecified; D64.9 Anemia, unspecified
CPT/HCPCS: 74177